=== PATIENT | female | born 1970 | race African-American/Black ===

== ENCOUNTER → 2016-04-30 | Outpatient (CLI) | payer OTHER ==
[~2016-04-30] MED LIST: ACEROLA C500 M2 PER TUBE; ACETAMINOP160 MG/5 M PER TUBE; BISACODYL SUPP10 MG RECTAL; CEFTIN 250 MG250 MG PO; CERTA VITE9 MG/15 ML PER TUBE; CERTAVITE WITH1 EAC1 PER TUBE; CLARITIN10 MG PER TUBE; DEBROX OTIC; DEPAKENE250 MG/5 M PER TUBE; DIASTAT2.5 MG RECTAL; ERYPED 200200 MG/51 PER TUBE; ERYTHROMYCIN PER TUBE; FLEET ENEMA118 ML RECTAL; KEPPRA 100100 MG/M1 PER TUBE; LOPERAMIDE1 MG/5 M1 PER TUBE; LOPRESSOR50 PER TUBE; MIRALAX255 GM PER TUBE; NEXIUM 40 MG CA40 M1 PER TUBE; NORVASC 2.5 MG2.5 M1 PER TUBE; OCEAN NASAL SPRAY; ONFI2.5 MG/1 M PER TUBE; OXCARBAZEP300 MG/5 M PER TUBE; OYSTERCAL-D 501 EACH PER TUBE; ROBITUSSIN DM118 ML PO; ROBITUSSIN100 MG/53 PER TUBE; SILVADENE20 GM; SULFATRIM PEDI480 ML PER TUBE; VALIUM5 MG RECTAL; VALPROIC A250 MG/53 PER TUBE; VITAMIN C125 MG PER TUBE; VITAMIN D-32000 UNIT PER TUBE; ZOFRAN ODT4 MG PO
== END ==
LOC: NUC 04-25 06:44 → ULTRA 09:00
DX: N95.9 Unspecified menopausal and perimenopausal disorder (principal); M81.0 Age-related osteoporosis without current pathological fracture; N64.4 Mastodynia; M85.80 Other specified disorders of bone density and structure, unspecified site

== ENCOUNTER → 2017-05-02 | Outpatient (CLI) | payer OTHER ==
[~2017-05-02] MED LIST changes: +AMOX TR-K CLV1 EAC4 PO; +AUGMENTIN 875-1 EACH PER TUBE; +AUGMENTIN 875-1 EACH PO; +BISCOLAX10 MG RECTAL; +CEFDINIR300 MG PO; +CLARITIN10 MG PO; +DUONEB 2.5-0.5 M3 ML INH; +FLAGYL500 MG PO; +FLEET ENEMA133 ML RECTAL; +JEVITY 1.5 CAL237 ML PO; +LOPERAMIDE 2 MG2 M1 PER TUBE; +LOPRESSOR50 PO; +MINERIN CREME454 GM TOP; +MIRALAX17 GM PO; +MURINE EAR DROP15 ML OTIC; +ONFI; +ONFI10 MG PO; +ONFI2.5 MG/1 M PO; +TUMS PO; +VITAMIN D2000 UNIT PER TUBE; +ZOFRAN ODT4 MG PER TUBE; +[UNRECOGNIZED DRUG - OTHER] PER TUBE; +[UNRECOGNIZED DRUG - OTHER] PO
--- NOTE | ~2017-05-02 | 2DMMODE ---
[facility] [address] [place] [address] 2 D/M-MODE ECHOCARDIOGRAM Name: MK REESE Room #: REG [facility]#: [id number] Admission: 05/02/17 Attend Phys: Faiza Hays Discharge: Date of : 70 Date of Service: 05/02/17 1425 Report #: [id number] THIS REPORT FOR: //name// APPROVED REPORT Study performed: 05/02/2017 13:43:08 EXAM: Comprehensive 2D, Doppler, and color-flow Echocardiogram Patient Location: Out-Patient Status: routine BSA: 1.36 HR: 97 bpm BP: 97/66 mmHg Rhythm: NSR Other Information Study Quality: Fair/patient is wheelchair bound. Technically limited study due to no patient cooperation. Exam done in wheelchair. Indications Chest Pain HTN. Hx: Cerebral palsy, mental retardation, PEG tub. 2D Dimensions RVDd: 22.10 mm LVEF(%): 68.11 (>50%) IVSd: 10.00 (7-11mm) LVOT Diam: 18.86 (18-24mm) LVDd: 32.32 mm PWd: 9.31 (7-11mm) LVDs: 20.40 (25-40mm) Aortic Root: 25.77 mm Siegel's LVEF: 68.11 % Volumes Left Atrial Volume (Systole) Single Plane 4CH: 20.02 mL Single Plane 2CH: 23.63 mL Aortic Valve AoV Peak Joaquín.: 1.30 m/s AO Peak Gr.: 6.94 mmHg LVOT Max P.27 mmHg LVOT Max V: 1.15 m/s USMAN Vmax: 2.47 cm2 Mitral Valve [facility] [address] [place] [address] 2 D/M-MODE ECHOCARDIOGRAM Name: MK REESE Room #: REG [facility]#: [id number] Admission: 05/02/17 Attend Phys: Faiza Hays Discharge: Date of : 70 Date of Service: 05/02/17 1425 Report #: [id number] E/A Ratio: 0.8 MV Decel. Time: 193.26 ms MV E Max Joaquín.: 0.58 m/s MV A Joaquín.: 0.73 m/s MV PHT: 56.04 ms IVRT: 89.97 ms Tricuspid Valve RAP Estimate: 5.00 mmHg Left Ventricle The left ventricle is normal size. There is normal LV segmental wall motion. There is normal left ventricular wall thickness. Left ventricular systolic function is normal. LVEF is 65%. Mild diastolic dysfunction is present (impaired relaxation pattern). Right Ventricle The right ventricle is normal size. The right ventricular systolic function is normal. Atria The left atrium size is normal. The right atrium size is normal. Aortic Valve The aortic valve is not well visualized. No aortic regurgitation is present. There is no aortic valvular stenosis. Mitral Valve The mitral valve is normal in structure. There is no mitral valve regurgitation noted. No evidence of mitral valve stenosis. Tricuspid Valve The tricuspid valve is normal in structure. There is no tricuspid valve regurgitation noted. Unable to assess PA pressure. Pulmonic Valve Pulmonic valve is not well visualized. Great Vessels The aortic root is normal in size. Ascending aorta is not well visualized. IVC is normal in size and collapses >50% with inspiration. Pericardium There is no pericardial effusion. [facility] [address] [place] [address] 2 D/M-MODE ECHOCARDIOGRAM Name: MK REESE [facility]: REG [facility] [id number] Admission: 05/02/17 Attend Phys: Faiza Hays Discharge: Date of : 70 Date of Service: 05/02/17 1425 Report #: [id number] <Conclusion> The left ventricle is normal size. LVEF is 65%. The aortic valve is not well visualized. There is no aortic valvular stenosis. No aortic regurgitation is present. The mitral valve is normal in structure. There is no mitral valve regurgitation noted. The tricuspid valve is normal in structure. There is no tricuspid valve regurgitation noted. Unable to assess PA pressure. Pulmonic valve is not well visualized. There is no pericardial effusion. <ELECTRONICALLY SIGNED> By: Sushil Lopez MD 05/02/17 1425 1425 1425 Sushil Lopez MD /INF
== END ==
LOC: ULTRA 06:51
DX: I10 Essential (primary) hypertension (principal); G80.9 Cerebral palsy, unspecified; R92.8 Other abnormal and inconclusive findings on diagnostic imaging of breast; N39.0 Urinary tract infection, site not specified; E87.2 Acidosis; Z93.1 Gastrostomy status

== ENCOUNTER 2017-05-26 08:46 | Inpatient (IN) | payer OTHER ==
[~2017-05-26] VITALS: Ht 167.6 cm; Wt 49.0 kg
--- NOTE | ~2017-05-26 | EKG ---
[address] [place] [address] ELECTROCARDIOGRAM REPORT Name: MK REESE Room #: 437-P ADM IN M.R.#: [id number] Admission: 05/26/17 Attend Phys: Julian Walter MD Discharge: Date of : 70 Report #: [id number] THIS REPORT FOR: //name// [facility] ED Test Date: 2017-05-26 Test Time: 10:08:38 Pat Name: MK REESE Department: Room: [facility] Gender: F Clerk Television Production: Edson MELVIN : 1970 Requested By: Sheri Vergara Order Number: [id number] MD: Abdoulaye Araujo Measurements Intervals [place] Rate: 100 P: 47 VA: 139 QRS: 48 QRSD: 79 T: 52 QT: 349 QTc: 451 Interpretive Statements Sinus tachycardia Borderline T wave abnormalities Compared to ECG 02/09/2016 06:20:30 T-wave abnormality now present Electronically Signed On 05-26-2017 17:16:41 PROFESSOR OF ASTRONOMY by Abdoulaye Araujo [email or web address] <ELECTRONICALLY SIGNED> By: Abdoulaye Araujo MD, [facility] 05/26/17 1716 07 Abdoulaye Araujo MD, [facility] /EPI
[~2017-05-26 08:46] MED LIST changes: -AMOX TR-K CLV1 EAC4 PO; -AUGMENTIN 875-1 EACH PER TUBE; -AUGMENTIN 875-1 EACH PO; -BISCOLAX10 MG RECTAL; -CEFDINIR300 MG PO; -CLARITIN10 MG PO; -DUONEB 2.5-0.5 M3 ML INH; -FLAGYL500 MG PO; -FLEET ENEMA133 ML RECTAL; -JEVITY 1.5 CAL237 ML PO; -LOPERAMIDE 2 MG2 M1 PER TUBE; -LOPRESSOR50 PO; -MINERIN CREME454 GM TOP; -MIRALAX17 GM PO; -MURINE EAR DROP15 ML OTIC; -ONFI; -ONFI2.5 MG/1 M PO; -TUMS PO; -VITAMIN D2000 UNIT PER TUBE; -ZOFRAN ODT4 MG PER TUBE; -[UNRECOGNIZED DRUG - OTHER] PER TUBE; -[UNRECOGNIZED DRUG - OTHER] PO
[2017-05-26 09:02] VITALS: BP 82/41
[2017-05-26 09:59] LABS: HEMATOCRIT 34.9 % (37.0-47.0); HEMOGLOBIN 11.8 gm/dL (12.0-15.0); MCHC 33.8 g/dL (28.0-37.0); MCV 97.4 fL (80.0-100.0); PLATELET COUNT 204 thou/uL (150-400); RBC 3.58 mil/uL (4.20-5.00); WBC 9.6 thou/uL (4.0-11.0)
[2017-05-26 10:13] LABS: CALCIUM 8.4 mg/dL (8.5-10.1); CREATININE 0.5 mg/dL (0.6-1.0); POTASSIUM 3.3 mmol/L (3.5-5.1)
[2017-05-26 10:19] LABS: ALBUMIN 2.6 g/dL (3.4-5.0); TOTAL BILIRUBIN 0.2 mg/dL (<0.1-1.0); TOTAL PROTEIN 6.5 g/dL (6.4-8.2)
[2017-05-26 10:21] LABS: TROPONIN-I < 0.04 ng/mL (<0.06)
[2017-05-26 10:22] LABS: METAMYELOCYTES 1 %; PLATELET ESTIMATE NORMAL
[2017-05-26 10:44] LABS: URINE BILIRUBIN NEGATIVE (Negative); URINE BLOOD NEGATIVE (Negative); URINE CLARITY CLEAR; URINE COLOR YELLOW; URINE GLUCOSE-RANDOM* NEGATIVE (Negative); URINE KETONES NEGATIVE (Negative); URINE LEUKOCYTES NEGATIVE (Negative); URINE NITRITE NEGATIVE (Negative); URINE PROTEIN (DIPSTICK) NEGATIVE (Negative); URINE UROBILINOGEN 0.2 E.U./dl (0.2-1.0)
[2017-05-26] MEDS ORDERED: CLARITIN10 MG PO (15:52)
[2017-05-26] MEDS ORDERED: JEVITY 1.5 CAL237 ML PO (15:53)
[2017-05-26 16:03] LABS: MAGNESIUM 1.9 mg/dL (1.8-2.4)
[2017-05-26 16:30] VITALS: BP 122/85
[2017-05-26 19:31] VITALS: BP 128/90
[2017-05-27 03:45] VITALS: BP 126/75
[2017-05-27 06:30] LABS: HEMATOCRIT 36.7 % (37.0-47.0); HEMOGLOBIN 12.3 gm/dL (12.0-15.0); MCH 32.8 pg (26.0-34.0); MCHC 33.7 g/dL (28.0-37.0); MCV 97.4 fL (80.0-100.0); PLATELET COUNT 178 thou/uL (150-400); RBC 3.77 mil/uL (4.20-5.00); RDW 14.1 % (10.5-14.5); WBC 8.1 thou/uL (4.0-11.0)
[2017-05-27 06:59] LABS: CALCIUM 7.8 mg/dL (8.5-10.1); CREATININE 0.5 mg/dL (0.6-1.0); MAGNESIUM 1.8 mg/dL (1.8-2.4); POTASSIUM 3.6 mmol/L (3.5-5.1)
[2017-05-27 08:42] VITALS: BP 146/83
[2017-05-27 09:09] LABS: ABSOLUTE NEUTROPHILS 4.5 thou/uL (1.4-8.2); PLATELET ESTIMATE NORMAL
[2017-05-27 16:08] VITALS: BP 132/65
[2017-05-27 20:18] VITALS: BP 118/68
[2017-05-28 01:56] LABS: HEMATOCRIT 35.4 % (37.0-47.0); MCH 33.1 pg (26.0-34.0); MCV 97.6 fL (80.0-100.0); RBC 3.62 mil/uL (4.20-5.00); RDW 14.2 % (10.5-14.5)
[2017-05-28 02:04] LABS: CALCIUM 8.2 mg/dL (8.5-10.1); CREATININE 0.5 mg/dL (0.6-1.0); POTASSIUM 4.1 mmol/L (3.5-5.1)
[2017-05-28 04:59] VITALS: BP 140/86
[2017-05-28 08:15] VITALS: BP 147/101
[2017-05-28 12:41] VITALS: BP 124/77
[2017-05-28 15:25] VITALS: BP 129/67
[2017-05-28 21:27] VITALS: BP 115/67
[2017-05-29 04:00] VITALS: BP 134/90
[2017-05-29 08:22] VITALS: BP 131/83
[2017-05-29] MEDS ORDERED: DUONEB 2.5-0.5 M3 ML INH (13:47)
[2017-05-29] MEDS ORDERED: AUGMENTIN 875-1 EACH PO (13:50)
== END 2017-05-29 17:27 | disposition home or self-care (01) | DRG 177 ==
LOC: ER 08:46 → 4S 10:51 → EROBS 10:51 → 4S 16:09
PROVIDERS: Hospitalist; Nurse Practitioner; Physician Assistant
DX: J15.6 Pneumonia due to other Gram-negative bacteria (principal); J96.00 Acute respiratory failure, unspecified whether with hypoxia or hypercapnia; E43 Unspecified severe protein-calorie malnutrition; Z68.1 Body mass index [BMI] 19.9 or less, adult; G40.909 Epilepsy, unspecified, not intractable, without status epilepticus; I10 Essential (primary) hypertension; K21.9 Gastro-esophageal reflux disease without esophagitis; E87.6 Hypokalemia; H91.90 Unspecified hearing loss, unspecified ear; I95.9 Hypotension, unspecified; M85.80 Other specified disorders of bone density and structure, unspecified site; R13.10 Dysphagia, unspecified; K59.09 Other constipation; Z79.899 Other long term (current) drug therapy; Z93.1 Gastrostomy status
CPT/HCPCS: 10100

== ENCOUNTER 2017-06-04 19:52 | Emergency (ER) | payer OTHER ==
[~2017-06-04] VITALS: Ht 167.6 cm; Wt 47.2 kg
[~2017-06-04 19:52] MED LIST changes: +AUGMENTIN 875-1 EACH PO; +CLARITIN10 MG PO; +DUONEB 2.5-0.5 M3 ML INH; +JEVITY 1.5 CAL237 ML PO
[2017-06-04 21:38] LABS: HEMATOCRIT 38.9 % (37.0-47.0); HEMOGLOBIN 13.1 gm/dL (12.0-15.0); MCH 32.8 pg (26.0-34.0); MCHC 33.7 g/dL (28.0-37.0); MCV 97.2 fL (80.0-100.0); PLATELET COUNT 219 thou/uL (150-400); RDW 13.7 % (10.5-14.5); WBC 7.4 thou/uL (4.0-11.0)
[2017-06-04 21:47] LABS: CREATININE 0.5 mg/dL (0.6-1.0); POTASSIUM 4.1 mmol/L (3.5-5.1)
[2017-06-04 21:58] LABS: URINE BILIRUBIN NEGATIVE (Negative); URINE BLOOD NEGATIVE (Negative); URINE CLARITY CLEAR; URINE COLOR YELLOW; URINE GLUCOSE-RANDOM* NEGATIVE (Negative); URINE KETONES NEGATIVE (Negative); URINE LEUKOCYTES NEGATIVE (Negative); URINE NITRITE NEGATIVE (Negative); URINE PROTEIN (DIPSTICK) NEGATIVE (Negative); URINE SPECIFIC GRAVITY 1.015 (1.005-1.035); URINE UROBILINOGEN 0.2 E.U./dl (0.2-1.0)
[2017-06-04 22:04] LABS: DIRECT BILIRUBIN 0.1 mg/dL (<0.1-0.3); TOTAL BILIRUBIN 0.1 mg/dL (<0.1-1.0); TOTAL PROTEIN 7.1 g/dL (6.4-8.2)
[2017-06-04 22:12] LABS: ABSOLUTE NEUTROPHILS 4.1 thou/uL (1.4-8.2)
[2017-06-04 22:24] VITALS: BP 118/81
== END 2017-06-04 23:51 | disposition home or self-care (01) ==
LOC: ER 19:52
PROVIDERS: Emergency Medicine
DX: G40.909 Epilepsy, unspecified, not intractable, without status epilepticus (principal); I10 Essential (primary) hypertension; K21.9 Gastro-esophageal reflux disease without esophagitis

== ENCOUNTER 2017-06-15 17:42 | Emergency (ER) | payer OTHER ==
[~2017-06-15] VITALS: Ht 165.1 cm; Wt 52.2 kg
--- NOTE | ~2017-06-15 | EKG ---
[address] [place] [address] ELECTROCARDIOGRAM REPORT Name: MK REESE [id number] Admission: 06/15/17 Attend Phys: Discharge: 06/15/17 Date of : 70 Report #: [id number] THIS REPORT FOR: //name// [facility] ED Test Date: 2017-06-15 Test Time: 17:55:27 Pat Name: MK REESE Department: Room: Gender: F Supervisor [employer]aming [employer]: DILIPCOREY : 1970 Requested By: Quintin Starr Order Number: [id number] MD: Abdoulaye Araujo Measurements Intervals [place] Rate: 87 P: 55 CT: 133 QRS: 47 QRSD: 92 T: 48 QT: 368 QTc: 443 Interpretive Statements Sinus rhythm Abnormal R-wave progression, early transition Compared to ECG 05/26/2017 10:08:38 Early R-wave progression is now present Electronically Signed On 06-16-2017 8:02:12 FLY FISHING GUIDE by Abdoulaye Araujo [email or web address] <ELECTRONICALLY SIGNED> By: Abdoulaye Araujo MD, [facility] 06/16/17 08 1755 175 Abdoulaye Araujo MD, FACC /EPI
[2017-06-15 18:59] LABS: HEMATOCRIT 40.3 % (37.0-47.0); HEMOGLOBIN 13.7 gm/dL (12.0-15.0); MCH 32.9 pg (26.0-34.0); MCV 96.8 fL (80.0-100.0); PLATELET COUNT 220 thou/uL (150-400); RBC 4.17 mil/uL (4.20-5.00); RDW 13.6 % (10.5-14.5); WBC 5.3 thou/uL (4.0-11.0)
[2017-06-15 19:00] LABS: BE(vivo) 2.3 mmol/L (-2 to +3); HCO3 28.1 mmol/L (22.0-26.0); PO2 VENOUS 72.2 mmHg (35.0-45.0)
[2017-06-15 19:09] LABS: ANION GAP 5 mmol/L (7-16); BUN 12 mg/dL (7-18); CALCIUM 9.1 mg/dL (8.5-10.1); CHLORIDE 103 mmol/L (98-107); CO2 29 mmol/L (21-32); CREATININE 0.5 mg/dL (0.6-1.0); GLUCOSE 105 mg/dL (74-106); POTASSIUM 3.9 mmol/L (3.5-5.1); SODIUM 137 mmol/L (136-145)
[2017-06-15 19:16] LABS: SGOT 23 U/L (15-37); SGPT 23 U/L (30-65); TOTAL BILIRUBIN 0.2 mg/dL (<0.1-1.0); TOTAL PROTEIN 7.6 g/dL (6.4-8.2); TROPONIN-I < 0.04 ng/mL (<0.06)
[2017-06-15 19:32] LABS: ABSOLUTE NEUTROPHILS 1.8 thou/uL (1.4-8.2); ATYPICAL LYMPHS 1 %
[2017-06-15 19:33] VITALS: BP 115/75
== END 2017-06-15 20:44 ==
LOC: ER 17:42
PROVIDERS: Emergency Medicine
DX: G80.9 Cerebral palsy, unspecified (principal); R06.03 Acute respiratory distress; R06.00 Dyspnea, unspecified; I10 Essential (primary) hypertension; K21.9 Gastro-esophageal reflux disease without esophagitis

== ENCOUNTER 2017-06-19 07:40 | Inpatient (IN) | payer OTHER ==
[~2017-06-19] VITALS: Ht 167.6 cm; Wt 56.5 kg
--- NOTE | ~2017-06-19 | EKG ---
[address] [place] [address] ELECTROCARDIOGRAM REPORT Name: MK REESE Room #: REG [facility] [id number] Admission: 06/19/17 Attend Phys: Discharge: Date of : 70 Report #: [id number] THIS REPORT FOR: //name// [facility] ED Test Date: 2017-06-19 Test Time: 08:14:38 Pat Name: MK REESE Department: Room: Gender: F Route Delivery Manager: rai : 1970 Requested By: Manjit Lee Order Number: [id number] MD: Abdoulaye Araujo Measurements Intervals [place] Rate: 122 P: 53 SD: 127 QRS: 57 QRSD: 77 T: 42 QT: 300 QTc: 428 Interpretive Statements Sinus tachycardia Abnormal R-wave progression, early transition Borderline repolarization abnormality Compared to ECG 06/15/2017 17:55:27 Heart rate has increased Electronically Signed On 06-19-2017 8:47:20 MACHINE OPERATOR CANE CUTTER by Abdoulaye Araujo [email or web address] <ELECTRONICALLY SIGNED> By: Abdoulaye Araujo MD, [facility] 06/19/17 0847 0814 3 Abdoulaye Araujo MD, FACC /EPI
--- NOTE | ~2017-06-19 | EEG ---
[facility] [place] [address] ELECTROENCEPHALOGRAM Name: MK REESE Room #: 217-P ADM IN M.R.#: [id number] Admission: 06/19/17 Attend Phys: Julian Walter MD Discharge: Date of : 70 Report #: [id number] THIS REPORT FOR: //name// CC: Julian Hays DATE OF SERVICE: 06/22/2017 This patient is being evaluated for the possibility of seizure. EEG was done by placing the electrode by standard 10/20 system of electrode placement. Both the referential and sequential montages were used for recording. Lot of eye movements are present. Background activity does appear to be about 6 Hz and 20 microvolt. It is a symmetrical activity. No active epileptiform activity was noticed during this record. The patient was not able to cooperate with photic stimulations. IMPRESSION: This patient's EEG demonstrates poorly formed background activity that will be consistent with a history of prior brain damage. No active epileptiform activity was noticed during this record. Thank you very much for this referral. <ELECTRONICALLY SIGNED> By: Umberto Frost MD 06/24/17 0719 00 Umberto Frost MD /nt
--- NOTE | ~2017-06-19 | HC ---
[facility] [place] [address] CONSULTATION Name: MK REESE Room #: 217-P ADM IN M.R.#: [id number] Admission: 06/19/17 Attend Phys: Julian Walter MD Discharge: Date of : 70 Report #: [id number] THIS REPORT FOR: //name// CC: Julian Hays DATE OF SERVICE: 06/22/2017 HISTORY OF PRESENT ILLNESS: A 47-year-old female patient who is unable to provide any history. There is no caregiver here at the moment. I talked to the nurses and they indicated that the patient lives in a correction, but is a total care. They have not noticed any active seizure, but her heart rate goes up sometime. She was admitted actually with fever and vomiting. No active seizure has been noted. She had severe and intractable seizures in the past. It does not look like it is responsive to the medication. It is a longstanding seizure disorder. REVIEW OF SYSTEMS: I reviewed my prior records and other records in the computer. She was seen by me a few years ago and she was also seen by Dr. Thayer, another neurologist, a few years ago. She has been admitted with intractable seizure. It is not clear what medication she takes. Looks like presently she is on Keppra as well as Depakote. She is on a maximum dose of Keppra at 1000 mg 3 times a day. She is on Depakote 500 mg t.i.d., which is higher than she has been in the past. At one time, she was on Trileptal and I do not know when that was discontinued or whether that was discontinued. She was on also other nearer medications, but I think some time along the line that got discontinued. She has severe, what looks like, cerebral palsy. She had very limited mobility. She lay in a position and looks like she has pneumonia now. I carried out the 14-point review of systems mainly from reviewing the prior records and it looks like this is what she has. 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 PAST MEDICAL HISTORY: Positive for intractable seizure, but it is not certain whether she is having seizure at the moment or not. FAMILY HISTORY: Unavailable. SOCIAL HISTORY: She lives in a correction, but she is a total care. PHYSICAL EXAMINATION: Very limited. She is deaf and blind according to the nurses. She does not follow any commands and she does not say any word. I tried to do the cranial nerve examination, she did not cooperate. She lays in the position with increased tone, but that appeared to be the baseline and has been present in my records. She does not understand instruction for cerebellar sign and cannot do the fundus examination. [place] [address] CONSULTATION Name: MK REESE Room #: 217-P ADM IN M.R.#: [id number] Admission: 06/19/17 Attend Phys: Julian Walter MD Discharge: Date of : 70 Report #: [id number] individual. Nurses tell me she cannot hear or see. Her blood pressure is 101/60, respirations 18, pulse is 111, temperature is 99.6. Sodium is normal. IMPRESSION: It is not certain that this patient is having any seizure. She has intractable seizures, but she is on medication. It is not clear what medication it is. We will try to get some records if we can to confirm what medication she is on. RECOMMENDATIONS: 1. Presently, leave her on same anticonvulsant of Depakote and Keppra. 2. Get an EEG done. 3. If EEG is okay, I will just leave her on same medication, but watch for seizure because the patient can have a seizure when they are having fever. If not, then I will ask her to follow up with her own neurologist, which I believe is Dr. Samuel. Thank you very much for this referral. <ELECTRONICALLY SIGNED> By: Umberto Frost MD 06/24/17 0721 1019 1054 Umberto Frost MD /nt
[2017-06-19 07:41] VITALS: BP 104/53
[2017-06-19 08:05] LABS: HEMATOCRIT 38.5 % (37.0-47.0); MCH 32.8 pg (26.0-34.0); MCHC 33.9 g/dL (28.0-37.0); MCV 96.7 fL (80.0-100.0); PLATELET COUNT 211 thou/uL (150-400); RBC 3.98 mil/uL (4.20-5.00); RDW 13.7 % (10.5-14.5); WBC 8.9 thou/uL (4.0-11.0)
[2017-06-19 08:19] LABS: CALCIUM 9.1 mg/dL (8.5-10.1); CREATININE 0.9 mg/dL (0.6-1.0); POTASSIUM 3.8 mmol/L (3.5-5.1)
[2017-06-19 08:20] LABS: URINE BILIRUBIN NEGATIVE (Negative); URINE BLOOD TRACE (Negative); URINE CLARITY CLEAR; URINE COLOR YELLOW; URINE GLUCOSE-RANDOM* NEGATIVE (Negative); URINE KETONES TRACE (Negative); URINE LEUKOCYTES-REFLEX NEGATIVE (Negative); URINE NITRITE-REFLEX NEGATIVE (Negative); URINE PROTEIN (DIPSTICK) NEGATIVE (Negative); URINE SPECIFIC GRAVITY 1.015 (1.005-1.035)
[2017-06-19 08:28] LABS: SSA (PROTEIN CONFIRMATORY) NEGATIVE (Negative)
[2017-06-19 08:41] LABS: ABSOLUTE NEUTROPHILS 5.7 thou/uL (1.4-8.2); METAMYELOCYTES 2 %
[2017-06-19] MEDS ORDERED: [UNRECOGNIZED DRUG - OTHER] PER TUBE ×2 (09:29→09:30)
[2017-06-19] MEDS ORDERED: ONFI2.5 MG/1 M PER TUBE (09:34)
[2017-06-19] MEDS ORDERED: VITAMIN D2000 UNIT PER TUBE (09:43)
[2017-06-19 11:20] VITALS: BP 125/77
[2017-06-19 12:36] VITALS: BP 108/66
[2017-06-19 13:04] VITALS: BP 85/53
[2017-06-19 15:44] VITALS: BP 87/58
[2017-06-19] MEDS ORDERED: AMOX TR-K CLV1 EAC4 PO (16:14)
[2017-06-19] MEDS ORDERED: ONFI (16:17)
[2017-06-19] MEDS ORDERED: TUMS PO (16:19)
[2017-06-19] MEDS ORDERED: [UNRECOGNIZED DRUG - OTHER] PO (16:20)
[2017-06-19] MEDS ORDERED: LOPRESSOR50 PO (16:24)
[2017-06-19] MEDS ORDERED: MINERIN CREME454 GM TOP (16:26)
[2017-06-19] MEDS ORDERED: MIRALAX17 GM PO (16:33)
[2017-06-19] MEDS ORDERED: BISCOLAX10 MG RECTAL (16:34)
[2017-06-19] MEDS ORDERED: FLEET ENEMA133 ML RECTAL (16:35)
[2017-06-19] MEDS ORDERED: ROBITUSSIN100 MG/53 PER TUBE (16:41)
[2017-06-19] MEDS ORDERED: LOPERAMIDE 2 MG2 M1 PER TUBE (16:42)
[2017-06-19] MEDS ORDERED: CLARITIN10 MG PO (16:42)
[2017-06-19] MEDS ORDERED: MURINE EAR DROP15 ML OTIC (16:44)
[2017-06-19] MEDS ORDERED: ZOFRAN ODT4 MG PER TUBE (16:45)
[2017-06-19 20:30] VITALS: BP 103/58
[2017-06-20 04:30] VITALS: BP 116/68
[2017-06-20 05:13] LABS: CALCIUM 8.1 mg/dL (8.5-10.1); CREATININE 0.5 mg/dL (0.6-1.0); MAGNESIUM 1.9 mg/dL (1.8-2.4); POTASSIUM 4.1 mmol/L (3.5-5.1)
[2017-06-20 06:26] VITALS: BP 116/68
[2017-06-20 08:22] VITALS: BP 135/97
[2017-06-20 09:44] LABS: APTT 27.1 Seconds (24.5-32.8); PROTIME 10.1 Seconds (9.3-11.4)
[2017-06-20 11:19] VITALS: BP 146/88
[2017-06-20 19:59] VITALS: BP 131/85
[2017-06-21 00:30] VITALS: BP 141/73
[2017-06-21 04:09] VITALS: BP 119/90
[2017-06-21 10:16] LABS: HEMOGLOBIN 11.8 gm/dL (12.0-15.0); MCH 32.6 pg (26.0-34.0); MCHC 33.8 g/dL (28.0-37.0); MCV 96.5 fL (80.0-100.0); RBC 3.63 mil/uL (4.20-5.00); RDW 13.8 % (10.5-14.5); WBC 8.5 thou/uL (4.0-11.0)
[2017-06-21 10:25] LABS: CALCIUM 7.5 mg/dL (8.5-10.1); CREATININE 0.5 mg/dL (0.6-1.0); MAGNESIUM 1.7 mg/dL (1.8-2.4); POTASSIUM 3.2 mmol/L (3.5-5.1)
[2017-06-21 16:06] VITALS: BP 147/93
[2017-06-21 19:19] VITALS: BP 146/98
[2017-06-22 04:16] LABS: HEMATOCRIT 33.7 % (37.0-47.0); HEMOGLOBIN 11.4 gm/dL (12.0-15.0); MCH 32.8 pg (26.0-34.0); MCHC 33.8 g/dL (28.0-37.0); RBC 3.48 mil/uL (4.20-5.00); RDW 13.8 % (10.5-14.5); WBC 6.9 thou/uL (4.0-11.0)
[2017-06-22 04:19] VITALS: BP 101/60
[2017-06-22 04:31] LABS: CALCIUM 8.3 mg/dL (8.5-10.1); CREATININE 0.5 mg/dL (0.6-1.0); MAGNESIUM 2.2 mg/dL (1.8-2.4); POTASSIUM 4.1 mmol/L (3.5-5.1)
[2017-06-22 15:32] VITALS: BP 171/99
[2017-06-22 19:25] VITALS: BP 155/99
[2017-06-23 04:23] VITALS: BP 142/96
[2017-06-23 05:57] LABS: HEMATOCRIT 34.9 % (37.0-47.0); HEMOGLOBIN 11.8 gm/dL (12.0-15.0); MCH 32.6 pg (26.0-34.0); MCHC 33.8 g/dL (28.0-37.0); MCV 96.5 fL (80.0-100.0); RBC 3.61 mil/uL (4.20-5.00); RDW 13.7 % (10.5-14.5); WBC 6.3 thou/uL (4.0-11.0)
[2017-06-23 06:06] LABS: CALCIUM 8.6 mg/dL (8.5-10.1); CREATININE 0.4 mg/dL (0.6-1.0); POTASSIUM 4.2 mmol/L (3.5-5.1)
[2017-06-23 08:00] VITALS: BP 147/98
[2017-06-23 19:46] VITALS: BP 139/92
[2017-06-24 03:56] VITALS: BP 148/88
[2017-06-24 04:52] LABS: CALCIUM 8.6 mg/dL (8.5-10.1); CREATININE 0.5 mg/dL (0.6-1.0); MAGNESIUM 1.8 mg/dL (1.8-2.4); POTASSIUM 4.1 mmol/L (3.5-5.1)
[2017-06-24 04:53] LABS: HEMATOCRIT 36.7 % (37.0-47.0); HEMOGLOBIN 12.3 gm/dL (12.0-15.0); MCH 32.5 pg (26.0-34.0); MCHC 33.6 g/dL (28.0-37.0); MCV 96.7 fL (80.0-100.0); RBC 3.79 mil/uL (4.20-5.00); RDW 13.7 % (10.5-14.5); WBC 7.1 thou/uL (4.0-11.0)
[2017-06-24 07:20] VITALS: BP 163/106
[2017-06-24] MEDS ORDERED: AUGMENTIN 875-1 EACH PER TUBE (09:20)
[2017-06-26 00:06] LABS: ADENOVIRUS Negative (Negative); INFLUENZA A Negative (Negative); INFLUENZA B Negative (Negative); METAPNEUMOVIRUS Negative (Negative); PARAINFLUENZA 1 Negative (Negative); PARAINFLUENZA 2 Negative (Negative); PARAINFLUENZA 3 Negative (Negative); RHINOVIRUS Negative (Negative); RSV A Negative (Negative); RSV B Negative (Negative)
== END 2017-06-24 13:55 | DRG 853 ==
LOC: ER 07:40 → EROBS 11:04 → 2N 11:04
PROVIDERS: Emergency Medicine; Internal Medicine; Nurse Practitioner; Radiology Vascular & Interventional Radiology
PROC: 0D164ZA Bypass Stomach to Jejunum, Percutaneous Endoscopic Approach (ICD-10-PCS; principal; 2017-06-20)
PROC: B548ZZA Ultrasonography of Superior Vena Cava, Guidance (ICD-10-PCS; 2017-06-23)
PROC: 02HV33Z Insertion of Infusion Device into Superior Vena Cava, Percutaneous Approach (ICD-10-PCS; 2017-06-23)
DX: A41.9 Sepsis, unspecified organism (principal); J69.0 Pneumonitis due to inhalation of food and vomit; N17.0 Acute kidney failure with tubular necrosis; K59.09 Other constipation; I10 Essential (primary) hypertension; K21.9 Gastro-esophageal reflux disease without esophagitis; M85.80 Other specified disorders of bone density and structure, unspecified site; G40.909 Epilepsy, unspecified, not intractable, without status epilepticus; H54.7 Unspecified visual loss; Z79.899 Other long term (current) drug therapy; Z99.3 Dependence on wheelchair
CPT/HCPCS: 10081; 27000

== ENCOUNTER 2017-08-21 08:22 | Emergency (ER) | payer OTHER ==
[~2017-08-21] VITALS: Ht 160 cm; Wt 54.4 kg
[~2017-08-21 08:22] MED LIST changes: +AMOX TR-K CLV1 EAC4 PO; +AUGMENTIN 875-1 EACH PER TUBE; +BISCOLAX10 MG RECTAL; +FLEET ENEMA133 ML RECTAL; +LOPERAMIDE 2 MG2 M1 PER TUBE; +LOPRESSOR50 PO; +MINERIN CREME454 GM TOP; +MIRALAX17 GM PO; +MURINE EAR DROP15 ML OTIC; +ONFI; +TUMS PO; +VITAMIN D2000 UNIT PER TUBE; +ZOFRAN ODT4 MG PER TUBE; +[UNRECOGNIZED DRUG - OTHER] PER TUBE; +[UNRECOGNIZED DRUG - OTHER] PO
== END 2017-08-21 12:29 ==
LOC: ER 08:22
DX: Z43.1 Encounter for attention to gastrostomy (principal)

== ENCOUNTER 2017-08-23 18:59 | Inpatient (IN) | payer OTHER ==
[~2017-08-23] VITALS: Ht 167.6 cm; Wt 36.3 kg
--- NOTE | ~2017-08-23 | EEG ---
[facility] [place] [address] ELECTROENCEPHALOGRAM Name: MK REESE Room #: 213-P ADM IN M.R.#: [id number] Admission: 08/23/17 Attend Phys: Gordon Parikh DO Discharge: Date of : 70 Report #: [id number] THIS REPORT FOR: //name// CC: Gordon Hays DATE OF SERVICE: 08/24/2017 This patient is being evaluated for altered mental status and seizures. EEG is masked by a lot of artifact because the patient could not cooperate. Background activity appeared to be about 6 Hz and 30 microvolt. The patient appeared to be drowsy during part of the EEG. Photic stimulation is unremarkable. IMPRESSION: This is a severely abnormal EEG because it is slow and poorly formed. That is a nonspecific abnormality, which can occur with dementia, encephalopathy, effect of psychotropic medication. Some seizure activity may also be present, but that is difficult to distinguish from the artifact. Thank you very much for this referral. <ELECTRONICALLY SIGNED> By: Umberto Frost MD 08/26/17 2209 0808 0814 Umberto Frost MD /nt
--- NOTE | ~2017-08-23 | EEG ---
[facility] [place] [address] ELECTROENCEPHALOGRAM Name: MK REESE Room #: 213-P ADM IN M.R.#: [id number] Admission: 08/23/17 Attend Phys: Gordon Parikh DO Discharge: Date of : 70 Report #: [id number] THIS REPORT FOR: //name// CC: Gordon Hays DATE OF SERVICE: 08/25/2017 This patient is being evaluated for the possibility of seizure. EEG was done by placing the electrodes by standard 10/20 system of electrode placement. Both referential and sequential montages were used for recording. Background activity in this patient's EEG is about 4-5 Hz and 30 microvolt. The patient appeared to be sleepy during part of the EEG and that is associated with bilateral slowing. Throughout the record, no active epileptiform activity was noticed. Photic stimulation was unremarkable. IMPRESSION: This is an abnormal EEG because it is slow and poorly formed. That is a nonspecific abnormality, which can occur with encephalopathy, effect of psychotropic medication, dementia, etc. Clinical correlation is recommended. <ELECTRONICALLY SIGNED> By: Umberto Frost MD 08/26/17 2209 1107 1155 Umberto Frost MD /nt
--- NOTE | ~2017-08-23 | HC ---
[facility] [place] [address] CONSULTATION Name: MK REESE Room #: 213-P ADM IN M.R.#: [id number] Admission: 08/23/17 Attend Phys: Gordon Parikh DO Discharge: Date of : 70 Report #: [id number] THIS REPORT FOR: //name// CC: Angie Hays DATE OF SERVICE: 08/24/2017 HISTORY OF PRESENT ILLNESS: This is a 47-year-old female patient who is unable to provide any history at all. The patient's mother is there. She provided some history. She indicated that she was normal when she was born, but at the age of 5 months, something happened and she started having uncontrollable seizure. Since then, she has not been able to take care of herself. She is there in a position. She does not recognize her parents and she has severe mental retardation. Apparently, the seizure is going on since that time, but further history about seizures is not clear. It is not known if she has seen any neurologist recently or even in the past. At one time, she used to be with [facility], but she does not know what they did. Mother does not know if she is on any seizure medication, but reviewing the record, it looks like that this patient got 1 dose of Keppra in the Emergency Room. I do not see any imaging study in this patient of the brain. REVIEW OF SYSTEMS: Indicate that this patient is having GI problems. She has a PEG tube that is being addressed by surgeon. She has severe mental retardation. She has difficult IV stick. Record indicate that she had multiple seizures since . I do not know what seizure medication she was taking during that time. I reviewed this patient's records and I had seen this patient that time and looks like she was on Depakote at that time. She was also on Keppra. She has seen another neurologist, Dr. Thayer at one time. She had workup last time. REVIEW OF SYSTEMS: I carried out 14-point review of system with this the best I can carry it out. PAST MEDICAL HISTORY: Positive for severe mental retardation and seizures and now a GI problem. FAMILY HISTORY: Negative for congenital epilepsy. SOCIAL HISTORY: She has mother, but she lives in a chcf. PHYSICAL EXAMINATION: Limited. She does not say anything. She has no verbal output. She does not follow any command and she opened her eyes, but does not do anything. Cranial nerve examination 2-12 was attempted and it is impossible to carry out. She stays in a position with increased tone, which I assume is her baseline. She is moderately built and I cannot tell about hearing, vision, or any thyroid mass. Heart looks unremarkable. Respiration looks [facility] [address] [place] [address] CONSULTATION Name: MK REESE Room #: 213-P [facility] IN M.R.#: [id number] Admission: 08/23/17 Attend Phys: Gordon Parikh DO Discharge: Date of : 70 Report #: [id number] unremarkable. Her blood pressure is 209/198, pulse is 180, temperature is 98.2. LABORATORY DATA: White count is 21.3. IMPRESSION AND PLAN: History of seizure, which is difficult to confirm in this patient who has severe mental retardation. I discussed the situation with the family in detail. I think because of her baseline condition, we should try to be conservative, but try to control her seizures. I do not know what medicine she was put in after she left this place and whether she got anything or not. I will ask the nurses to find out. I will do an EEG to see if any active seizure activity is going on. She was on a pretty heavy dose of Keppra at one time, so I will go ahead and start this patient on Keppra. All of it was discussed with the family in detail and they understand and they want to follow this approach. Thank you very much for this referral and we will follow this patient along with you. <ELECTRONICALLY SIGNED> By: Umberto Frost MD 08/26/17 2208 1612 0342 Umberto Frost MD /nt
--- NOTE | ~2017-08-23 | EKG ---
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: EDER : 1970 Requested By: Alexis Duncan Order Number: [id number] MD: Abdoulaye Araujo Measurements Intervals [place] Rate: 126 P: 53 UT: 117 QRS: 38 QRSD: 72 T: 29 QT: 315 QTc: 457 Interpretive Statements Sinus tachycardia Atrial premature complex Abnormal R-wave progression, early transition Left ventricular hypertrophy Compared to ECG 06/19/2017 08:14:38 Atrial premature complex(es) now present Electronically Signed On 08-27-2017 8:41:26 CDT by Abdoulaye Araujo [email or web address] <ELECTRONICALLY SIGNED> By: Abdoulaye Araujo MD, [facility] 08/27/17 0841 1419 1419 Abdoulaye Araujo MD, [facility] /EPI
--- NOTE | ~2017-08-23 | EEG ---
[facility] [place] [address] ELECTROENCEPHALOGRAM Name: MK REESE Room #: 213-P ADM IN M.R.#: [id number] Admission: 08/23/17 Attend Phys: Gordon Parikh DO Discharge: Date of : 70 Report #: [id number] THIS REPORT FOR: //name// CC: Gordon Hays DATE OF SERVICE: 08/31/2017 This patient is being evaluated for the possibility of seizure. EEG was done to see if seizure activity has resolved. Background activity in this patient's EEG is about 6 Hz and 30 microvolt. Photic stimulation is unremarkable. This patient became drowsy and that is associated with bilateral slowing, which was worse than the baseline. No active epileptiform activity was noticed. IMPRESSION: This patient's electroencephalogram does not demonstrate any active epileptiform activity. However, the patient's electroencephalogram is severely abnormal because of slowing and poorly formed. That is a nonspecific abnormality, which can occur with encephalopathy, effect of psychotropic medication, dementia, etc. Clinical correlation is recommended. <ELECTRONICALLY SIGNED> By: Umberto Frost MD 09/02/172151 25 33 Umberto Frost MD /nt
--- NOTE | ~2017-08-23 | 2DMMODE ---
[facility] [address] [place] [address] 2 D/M-MODE ECHOCARDIOGRAM Name: MK REESE Room #: 213-P ADM IN M.R.#: [id number] Admission: 08/23/17 Attend Phys: Gordon Parikh, Discharge: Date of : 70 Date of Service: 08/28/17 1207 Report #: [id number] THIS REPORT FOR: //name// APPROVED REPORT Study performed: 08/28/2017 10:35:53 EXAM: Comprehensive 2D, Doppler, and color-flow Echocardiogram Patient Location: Bedside Room #: 213 Status: routine BSA: 1.56 HR: 104 bpm Other Information Study Quality: Technically DifficultTechnically Limited Technically limited study due to inability to position patient, Cerebral Palsy. Indications Tachycardia Pulmonary Valve PV Peak Joaquín.: 0.99 m/s PV Peak Gr.: 3.95 mmHg Left Ventricle The left ventricle is normal size. There is normal left ventricular wall thickness. Left ventricular systolic function is hyperdynamic. LVEF is 65-70%. This study is not technically sufficient to allow evaluation of the LV diastolic function. Right Ventricle The right ventricle is normal size. The right ventricular systolic function is normal. Atria The left atrium size is normal. The right atrium size is normal. Aortic Valve The aortic valve is not well visualized. No aortic regurgitation is present. There is no aortic valvular stenosis. Mitral Valve [facility] [address] [place] [address] 2 D/M-MODE ECHOCARDIOGRAM Name: MK REESE Room #: 213-P [facility] IN M.R.#: [id number] Admission: 08/23/17 Attend Phys: Gordon Parikh, Discharge: Date of : 70 Date of Service: 08/28/17 1207 Report #: [id number] The mitral valve is normal in structure. There is no mitral valve regurgitation noted. No evidence of mitral valve stenosis. Tricuspid Valve The tricuspid valve is normal in structure. There is no tricuspid valve regurgitation noted. Pulmonic Valve Pulmonic valve is poorly visualized. Great Vessels The aortic root is normal in size. IVC is normal in size and collapses >50% with inspiration. Pericardium There is no pericardial effusion. <Conclusion> The left ventricle is normal size. LVEF is 65-70%. This study is not technically sufficient to allow evaluation of the LV diastolic function. The right ventricle is normal size. The left atrium size is normal. The aortic valve is not well visualized. There is no aortic valvular stenosis. There is no mitral valve regurgitation noted. There is no tricuspid valve regurgitation noted. The aortic root is normal in size. There is no pericardial effusion. <ELECTRONICALLY SIGNED> By: Kevin Gant MD, FACC [id number] 06 Kevin Gant MD, FAC /INF
--- NOTE | ~2017-08-23 | HC ---
[facility] [place] [address] CONSULTATION Name: MK REESE Room #: 213-P ADM IN M.R.#: [id number] Admission: 08/23/17 Attend Phys: Gordon Parikh DO Discharge: Date of : 70 Report #: [id number] THIS REPORT FOR: //name// CC: Gordon Hays REASON FOR CONSULTATION: I was asked to evaluate concerning peritonitis, free air in the abdomen. HISTORY OF PRESENT ILLNESS: The patient is a 47-year-old with history of cerebral palsy, seizure disorder who has undergone PEG tube placement in the past. She presented on 08/23 with hematemesis. She has had a GJ tube that clogged on 08/21. This was replaced in IR. Since then, she was having several seizure episodes, then developed the hematemesis. Further evaluation has revealed gastric outlet obstruction due to the balloon of the tube. CT scan showed evidence of free air in the abdomen without abscess. Yesterday, the gastrostomy tube was exchanged without complication. She remains in the intensive care unit on IV antibiotics and observation. There is some question whether she has aspirated during this episode. G-tube was initially placed in May after an episode of aspiration. Due to her ongoing seizures, she has been followed by Neurology, performed an EEG which was nonspecific change. ALLERGIES: None. MEDICATIONS: As noted on JUN including Levaquin and Zosyn. PAST MEDICAL HISTORY: Mental retardation, cerebral palsy, GJ tube placement, seizure disorder, aspiration pneumonia, osteoporosis, dysphagia, gastroesophageal reflux, scoliosis. She is legally blind, hard of hearing. She has a hiatal hernia, hypertension and constipation. FAMILY HISTORY: Noncontributory. SOCIAL HISTORY: Nonsmoker. No significant alcohol intake. REVIEW OF SYSTEMS: The patient was unable to give any details. She has a left IJ catheter in place. GJ tube in place. Jean Baptiste catheter. PHYSICAL EXAMINATION: VITAL SIGNS: She is afebrile. She is tachycardic. Blood pressure has been stable. HEENT: Unremarkable. EXTREMITIES: She was contractured with flexion contractures, both upper and lower extremities. SKIN: Unremarkable. NECK: Supple. LUNGS: Clear anteriorly. [facility] [address] [place] [address] CONSULTATION Name: MK REESE Room #: 213-P [facility] IN .R.#: [id number] Admission: 08/23/17 Attend Phys: Gordon Parikh DO Discharge: Date of : 70 Report #: [id number] HEART: Regular and tachycardic. ABDOMEN: Soft. PEG site was unremarkable. LABORATORY STUDIES: Hemoglobin 11; platelet count 193,000; white count 15,000; 80% segs. Sodium 138, potassium 2.7, bicarbonate 28, creatinine 0.5. Urinalysis unremarkable. CT scan of the abdomen showed air in the peritoneum. No other abnormalities. IMPRESSION: A 47-year-old markedly debilitated with mental retardation, cerebral palsy, ongoing seizure disorder with risk of aspiration who developed gastric outlet obstruction due to her gastrojejunal tube balloon. Suspecting the intraperitoneal air is from gastric distention and leak through the gastric fistula. Overall, the patient appears to be improving following exchange procedure. PLAN: Would recommend continuing antibiotic coverage with Unasyn and fluconazole. Repeat CBC to ensure white count normalizes. Switch to oral therapy once tolerating tube feedings. <ELECTRONICALLY SIGNED> By: Quintin Salinas MD 08/26/17 1554 0909 0153 Quintin Salinas MD /nt
--- NOTE | ~2017-08-23 | EEG ---
[facility] [place] [address] ELECTROENCEPHALOGRAM Name: MK REESE Room #: 213-P ADM IN M.R.#: [id number] Admission: 08/23/17 Attend Phys: Gordon Parikh DO Discharge: Date of : 70 Report #: [id number] THIS REPORT FOR: //name// CC: Gordon Hays DATE OF SERVICE: 08/29/2017 DESCRIPTION: This patient's EEG was done to evaluate the patient for the possibility of seizure. EEG was slow and is about 5-6 Hz and 30 microvolts. A lot of artifact is present. Photic stimulation is unremarkable. EEG appeared to be somewhat slow on both sides and that is a nonspecific abnormality, but can indicate sleep during that time. I do not see any active epileptiform activity, but that is difficult to exclude with so much artifact. IMPRESSION: Very difficult to interpret EEG because the EEG is masked by a lot of artifact. I do not believe there is any active epileptiform activity, but I cannot exclude that because of lot of artifact. Thank you very much for this referral. <ELECTRONICALLY SIGNED> By: Umberto Frost MD 09/02/172151 15 23 Umberto Frost MD /nt
[2017-08-23 19:00] VITALS: BP 123/88
[2017-08-23 23:43] VITALS: BP 123/88
[2017-08-24] VITALS (29 sets, daily range): BP systolic 103–209; BP diastolic 71–198
[2017-08-24 01:51] LABS: HEMATOCRIT 41.4 % (37.0-47.0); HEMOGLOBIN 13.7 gm/dL (12.0-15.0); MCH 31.6 pg (26.0-34.0); MCHC 33.1 g/dL (28.0-37.0); MCV 95.4 fL (80.0-100.0); PLATELET COUNT 310 thou/uL (150-400); RBC 4.34 mil/uL (4.20-5.00); RDW 13.7 % (10.5-14.5); WBC 21.3 thou/uL (4.0-11.0)
[2017-08-24 02:02] LABS: CALCIUM 8.6 mg/dL (8.5-10.1); CREATININE 0.7 mg/dL (0.6-1.0)
[2017-08-24 02:04] LABS: APTT 26.5 Seconds (24.5-32.8); PROTIME 10.7 Seconds (9.3-11.4)
[2017-08-24 02:08] LABS: ALBUMIN 2.8 g/dL (3.4-5.0); TOTAL BILIRUBIN 0.3 mg/dL (<0.1-1.0)
[2017-08-24 02:10] LABS: POTASSIUM 2.8 mmol/L (3.5-5.1)
[2017-08-24 02:18] LABS: ABSOLUTE NEUTROPHILS 18.5 thou/uL (1.4-8.2); ATYPICAL LYMPHS 1 %
[2017-08-24 17:10] LABS: URINE BILIRUBIN NEGATIVE (Negative); URINE BLOOD 1+ (Negative); URINE CLARITY CLEAR; URINE COLOR STRAW; URINE GLUCOSE-RANDOM* NEGATIVE (Negative); URINE KETONES NEGATIVE (Negative); URINE LEUKOCYTES-REFLEX TRACE (Negative); URINE NITRITE-REFLEX NEGATIVE (Negative); URINE PROTEIN (DIPSTICK) NEGATIVE (Negative); URINE SPECIFIC GRAVITY 1.015 (1.005-1.035); URINE UROBILINOGEN 0.2 E.U./dl (0.2-1.0)
[2017-08-24 17:22] LABS: URINE RBC 3-10 Few /HPF (0-2)
[2017-08-24 17:23] LABS: BACTERIA-REFLEX 1-9 Few /HPF (None Seen); CASTS None Seen /LPF (None Seen); CRYSTALS None Seen /LPF (None Seen); SQUAMOUS 0-3 Few /LPF (0-3); URINE WBC-REFLEX 0-5 Rare /HPF (0-5)
[2017-08-25] VITALS (12 sets, daily range): BP systolic 122–143; BP diastolic 70–113
[2017-08-25 04:30] LABS: HEMATOCRIT 33.5 % (37.0-47.0); MCH 31.8 pg (26.0-34.0); MCHC 33.1 g/dL (28.0-37.0); MCV 96.1 fL (80.0-100.0); RBC 3.48 mil/uL (4.20-5.00); RDW 13.6 % (10.5-14.5)
[2017-08-25 04:33] LABS: HEMOGLOBIN 11.1 gm/dL (12.0-15.0); PLATELET COUNT 193 thou/uL (150-400)
[2017-08-25 04:41] LABS: CALCIUM 8.2 mg/dL (8.5-10.1); CREATININE 0.5 mg/dL (0.6-1.0)
[2017-08-25 04:55] LABS: POTASSIUM 2.7 mmol/L (3.5-5.1)
[2017-08-25 08:01] LABS: ANISOCYTOSIS SLIGHT
[2017-08-26 04:29] VITALS: BP 132/85
[2017-08-26 04:37] LABS: ABSOLUTE NEUTROPHILS 12.3 thou/uL (1.4-8.2); BASOPHILS 0.5 % (0.0-2.0); EOSINOPHILS 0.4 % (0.0-3.0); HEMATOCRIT 33.3 % (37.0-47.0); HEMOGLOBIN 11.4 gm/dL (12.0-15.0); LYMPHOCYTES 13.1 % (24.0-44.0); MCH 32.3 pg (26.0-34.0); MCHC 34.2 g/dL (28.0-37.0); MCV 94.5 fL (80.0-100.0); MONOCYTES 11.1 % (1.0-8.0); PLATELET COUNT 238 thou/uL (150-400); POLYS 74.9 % (36.0-66.0); RBC 3.52 mil/uL (4.20-5.00); RDW 13.6 % (10.5-14.5); WBC 16.4 thou/uL (4.0-11.0)
[2017-08-26 04:45] LABS: CALCIUM 8.5 mg/dL (8.5-10.1); CREATININE 0.4 mg/dL (0.6-1.0); POTASSIUM 3.1 mmol/L (3.5-5.1)
[2017-08-26 08:18] VITALS: BP 129/94
[2017-08-26 12:07] VITALS: BP 96/67
[2017-08-26 15:31] VITALS: BP 110/68
[2017-08-26 21:05] VITALS: BP 146/95
[2017-08-27 04:58] VITALS: BP 149/79
[2017-08-27 05:15] LABS: HEMATOCRIT 34.1 % (37.0-47.0); HEMOGLOBIN 11.3 gm/dL (12.0-15.0); MCH 31.4 pg (26.0-34.0); MCHC 33.2 g/dL (28.0-37.0); MCV 94.5 fL (80.0-100.0); PLATELET COUNT 252 thou/uL (150-400); RBC 3.61 mil/uL (4.20-5.00); RDW 13.2 % (10.5-14.5)
[2017-08-27 05:17] LABS: CALCIUM 8.7 mg/dL (8.5-10.1); CREATININE 0.5 mg/dL (0.6-1.0); POTASSIUM 3.1 mmol/L (3.5-5.1)
[2017-08-27 05:57] LABS: ABSOLUTE NEUTROPHILS 11.1 thou/uL (1.4-8.2); ATYPICAL LYMPHS 1 %; METAMYELOCYTES 1 %
[2017-08-27 07:39] VITALS: BP 153/110
[2017-08-27 11:35] VITALS: BP 139/69
[2017-08-27 15:15] VITALS: BP 136/90
[2017-08-27 20:13] VITALS: BP 119/71
[2017-08-28 02:00] VITALS: BP 131/85
[2017-08-28 04:33] LABS: HEMATOCRIT 30.7 % (37.0-47.0); HEMOGLOBIN 10.4 gm/dL (12.0-15.0); MCH 32.3 pg (26.0-34.0); PLATELET COUNT 240 thou/uL (150-400); RBC 3.23 mil/uL (4.20-5.00); RDW 13.6 % (10.5-14.5); WBC 12.5 thou/uL (4.0-11.0)
[2017-08-28 04:45] LABS: CALCIUM 8.3 mg/dL (8.5-10.1); CREATININE 0.5 mg/dL (0.6-1.0); POTASSIUM 3.7 mmol/L (3.5-5.1)
[2017-08-28 04:50] VITALS: BP 108/73
[2017-08-28 05:29] LABS: ABSOLUTE NEUTROPHILS 10.1 thou/uL (1.4-8.2)
[2017-08-28 11:32] VITALS: BP 142/84
[2017-08-28 15:43] VITALS: BP 124/84
[2017-08-28 19:14] VITALS: BP 121/89
[2017-08-28 23:32] VITALS: BP 156/95
[2017-08-29 04:04] VITALS: BP 140/93
[2017-08-29 07:16] VITALS: BP 127/85
[2017-08-29 12:06] VITALS: BP 135/88
[2017-08-29 12:54] VITALS: BP 135/88
[2017-08-29] MEDS ORDERED: ONFI2.5 MG/1 M PO (13:43)
[2017-08-29 15:15] VITALS: BP 149/99
[2017-08-29 19:38] VITALS: BP 147/98
[2017-08-30 05:15] VITALS: BP 157/99
[2017-08-30 07:53] VITALS: BP 132/93
[2017-08-30 11:42] LABS: HEMATOCRIT 32.1 % (37.0-47.0); HEMOGLOBIN 10.9 gm/dL (12.0-15.0); MCH 32.1 pg (26.0-34.0); MCV 94.5 fL (80.0-100.0); RDW 13.8 % (10.5-14.5); WBC 16.7 thou/uL (4.0-11.0)
[2017-08-30 11:49] LABS: PLATELET COUNT 331 thou/uL (150-400)
[2017-08-30 11:54] LABS: CALCIUM 8.6 mg/dL (8.5-10.1); CREATININE 0.5 mg/dL (0.6-1.0); POTASSIUM 3.2 mmol/L (3.5-5.1)
[2017-08-30 12:17] VITALS: BP 148/94
[2017-08-30 12:49] LABS: ABSOLUTE NEUTROPHILS 10.5 thou/uL (1.4-8.2); ANISOCYTOSIS SLIGHT; METAMYELOCYTES 1 %; POLYCHROMASIA OCCASIONAL
[2017-08-30 16:39] VITALS: BP 137/89
[2017-08-30 20:00] VITALS: BP 132/86
[2017-08-31 03:54] VITALS: BP 146/93
[2017-08-31 07:05] VITALS: BP 136/65
[2017-08-31 11:15] VITALS: BP 122/56
[2017-08-31 15:45] VITALS: BP 134/86
[2017-08-31 19:50] VITALS: BP 131/95
[2017-09-01 03:45] VITALS: BP 140/88
[2017-09-01 08:27] VITALS: BP 145/96
[2017-09-01 11:32] VITALS: BP 140/94
[2017-09-01 14:22] LABS: HEMATOCRIT 30.9 % (37.0-47.0); HEMOGLOBIN 10.5 gm/dL (12.0-15.0); MCH 32.3 pg (26.0-34.0); MCHC 34.1 g/dL (28.0-37.0); MCV 94.7 fL (80.0-100.0); PLATELET COUNT 341 thou/uL (150-400); RBC 3.27 mil/uL (4.20-5.00); RDW 13.8 % (10.5-14.5); WBC 12.9 thou/uL (4.0-11.0)
[2017-09-01 14:36] LABS: ALBUMIN 2.2 g/dL (3.4-5.0); CALCIUM 8.9 mg/dL (8.5-10.1); CREATININE 0.5 mg/dL (0.6-1.0); POTASSIUM 3.8 mmol/L (3.5-5.1); TOTAL BILIRUBIN 0.2 mg/dL (<0.1-1.0)
[2017-09-01 14:55] LABS: ABSOLUTE NEUTROPHILS 7.4 thou/uL (1.4-8.2); PLATELET ESTIMATE NORMAL
[2017-09-01 15:45] VITALS: BP 153/88
[2017-09-01 20:12] VITALS: BP 121/74
[2017-09-02 05:00] VITALS: BP 122/65
[2017-09-02 05:46] VITALS: BP 122/65
[2017-09-02 06:44] VITALS: BP 125/85
[2017-09-02 09:22] LABS: HEMATOCRIT 30.3 % (37.0-47.0); HEMOGLOBIN 10.2 gm/dL (12.0-15.0); MCH 32.1 pg (26.0-34.0); MCHC 33.8 g/dL (28.0-37.0); PLATELET COUNT 347 thou/uL (150-400); RBC 3.18 mil/uL (4.20-5.00); RDW 13.4 % (10.5-14.5); WBC 14.5 thou/uL (4.0-11.0)
[2017-09-02 09:28] LABS: CALCIUM 8.8 mg/dL (8.5-10.1); CREATININE 0.4 mg/dL (0.6-1.0); POTASSIUM 3.6 mmol/L (3.5-5.1)
[2017-09-02 09:57] LABS: ABSOLUTE NEUTROPHILS 11.3 thou/uL (1.4-8.2); POLYCHROMASIA SLIGHT
[2017-09-02 11:16] VITALS: BP 111/85
[2017-09-02 15:20] VITALS: BP 133/106
[2017-09-02 20:21] VITALS: BP 136/69
[2017-09-03] VITALS (8 sets, daily range): BP systolic 111–155; BP diastolic 63–103
[2017-09-03 04:45] LABS: HEMATOCRIT 31.4 % (37.0-47.0); HEMOGLOBIN 10.4 gm/dL (12.0-15.0); MCH 31.5 pg (26.0-34.0); MCHC 33.2 g/dL (28.0-37.0); MCV 94.9 fL (80.0-100.0); PLATELET COUNT 398 thou/uL (150-400); RBC 3.31 mil/uL (4.20-5.00); RDW 13.5 % (10.5-14.5); WBC 14.6 thou/uL (4.0-11.0)
[2017-09-03 08:28] LABS: ABSOLUTE NEUTROPHILS 10.2 thou/uL (1.4-8.2); METAMYELOCYTES 1 %; MYELOCYTES 1 %; PLATELET ESTIMATE NORMAL
[2017-09-03] MEDS ORDERED: FLAGYL500 MG PO (15:33)
[2017-09-03] MEDS ORDERED: CEFDINIR300 MG PO (15:33)
[2017-09-04 13:45] VITALS: BP 135/88
== END 2017-09-03 16:21 | disposition home or self-care (01) | DRG 853 ==
LOC: ER 18:59 → EROBS 19:35 → ER 19:35 → EROBS 23:38 → ICU 23:38 → 2N 08-25 17:39
PROVIDERS: Emergency Medicine; Family Medicine; Hospitalist; Nurse Practitioner Family; Specialist
PROC: 0DW63UZ Revision of Feeding Device in Stomach, Percutaneous Approach (ICD-10-PCS; principal; 2017-08-24)
PROC: 02HV33Z Insertion of Infusion Device into Superior Vena Cava, Percutaneous Approach (ICD-10-PCS; principal; 2017-08-24)
PROC: B548ZZA Ultrasonography of Superior Vena Cava, Guidance (ICD-10-PCS; principal; 2017-08-24)
PROC: B5181ZA Fluoroscopy of Superior Vena Cava using Low Osmolar Contrast, Guidance (ICD-10-PCS; principal; 2017-08-24)
DX: A41.9 Sepsis, unspecified organism (principal); J69.0 Pneumonitis due to inhalation of food and vomit; K65.9 Peritonitis, unspecified; E43 Unspecified severe protein-calorie malnutrition; K92.2 Gastrointestinal hemorrhage, unspecified; F72 Severe intellectual disabilities; Z68.1 Body mass index [BMI] 19.9 or less, adult; K94.29 Other complications of gastrostomy; G80.9 Cerebral palsy, unspecified; I10 Essential (primary) hypertension; E86.0 Dehydration; G40.909 Epilepsy, unspecified, not intractable, without status epilepticus; M81.0 Age-related osteoporosis without current pathological fracture; M41.9 Scoliosis, unspecified; E87.6 Hypokalemia; K44.9 Diaphragmatic hernia without obstruction or gangrene; K21.9 Gastro-esophageal reflux disease without esophagitis; H54.8 Legal blindness, as defined in USA; Y83.8 Other surgical procedures as the cause of abnormal reaction of the patient, or of later complication, without mention of misadventure at the time of the procedure; H91.90 Unspecified hearing loss, unspecified ear; Z93.1 Gastrostomy status; Z79.899 Other long term (current) drug therapy; Q05.9 Spina bifida, unspecified; Y92.89 Other specified places as the place of occurrence of the external cause
CPT/HCPCS: 10078; 10797

== ENCOUNTER 2017-09-16 01:31 | Emergency (ER) | payer OTHER ==
[~2017-09-16] VITALS: Ht 167.6 cm; Wt 49.0 kg
[~2017-09-16 01:31] MED LIST changes: +CEFDINIR300 MG PO; +FLAGYL500 MG PO; +ONFI2.5 MG/1 M PO
[2017-09-16 03:07] LABS: HEMATOCRIT 39.2 % (37.0-47.0); HEMOGLOBIN 13.1 gm/dL (12.0-15.0); MCH 31.9 pg (26.0-34.0); MCHC 33.6 g/dL (28.0-37.0); MCV 95.2 fL (80.0-100.0); PLATELET COUNT 479 thou/uL (150-400); RBC 4.12 mil/uL (4.20-5.00); WBC 9.4 thou/uL (4.0-11.0)
[2017-09-16 03:14] LABS: ANION GAP 5 mmol/L (7-16); BUN 12 mg/dL (7-18); CALCIUM 9.7 mg/dL (8.5-10.1); CHLORIDE 101 mmol/L (98-107); CO2 32 mmol/L (21-32); CREATININE 0.5 mg/dL (0.6-1.0); GLUCOSE 90 mg/dL (74-106); POTASSIUM 4.5 mmol/L (3.5-5.1); SODIUM 138 mmol/L (136-145)
[2017-09-16 03:19] LABS: DIRECT BILIRUBIN < 0.1 mg/dL (<0.1-0.3); LIPASE 156 U/L (73-393); SGOT 19 U/L (15-37); SGPT 14 U/L (30-65); TOTAL BILIRUBIN 0.2 mg/dL (<0.1-1.0); TOTAL PROTEIN 8.2 g/dL (6.4-8.2)
[2017-09-16 04:00] LABS: ABSOLUTE NEUTROPHILS 4.9 thou/uL (1.4-8.2)
== END 2017-09-16 05:16 | disposition short-term general hospital (02) ==
LOC: ER 01:31
PROVIDERS: Emergency Medicine
DX: K29.70 Gastritis, unspecified, without bleeding (principal); K21.9 Gastro-esophageal reflux disease without esophagitis; I10 Essential (primary) hypertension

== ENCOUNTER 2017-09-30 08:11 | Emergency (ER) | payer OTHER ==
[~2017-09-30] VITALS: Ht 157.5 cm; Wt 52.2 kg
== END 2017-09-30 14:30 | disposition home or self-care (01) ==
LOC: ER 08:11
DX: K94.23 Gastrostomy malfunction (principal); G80.9 Cerebral palsy, unspecified; M81.0 Age-related osteoporosis without current pathological fracture; K21.9 Gastro-esophageal reflux disease without esophagitis; I10 Essential (primary) hypertension; Y83.8 Other surgical procedures as the cause of abnormal reaction of the patient, or of later complication, without mention of misadventure at the time of the procedure; Y92.89 Other specified places as the place of occurrence of the external cause

== ENCOUNTER 2017-10-10 11:15 | Emergency (ER) | payer OTHER ==
[~2017-10-10] VITALS: Ht 167.6 cm; Wt 50.4 kg
== END 2017-10-10 18:21 | disposition home or self-care (01) ==
LOC: ER 11:15
DX: Z43.1 Encounter for attention to gastrostomy (principal); K21.9 Gastro-esophageal reflux disease without esophagitis; I10 Essential (primary) hypertension

== ENCOUNTER 2017-10-27 14:17 | Emergency (ER) | payer OTHER ==
[~2017-10-27] VITALS: Ht 152.4 cm; Wt 40.8 kg
== END 2017-10-27 18:24 | disposition home or self-care (01) ==
LOC: ER 14:17
DX: Z46.59 Encounter for fitting and adjustment of other gastrointestinal appliance and device (principal); K21.9 Gastro-esophageal reflux disease without esophagitis; I10 Essential (primary) hypertension

== ENCOUNTER 2017-11-03 16:34 | Emergency (ER) | payer OTHER ==
[~2017-11-03] VITALS: Ht 149.9 cm; Wt 40.8 kg
== END 2017-11-03 18:00 | disposition home or self-care (01) ==
LOC: ER 16:34
DX: K94.23 Gastrostomy malfunction (principal); K21.9 Gastro-esophageal reflux disease without esophagitis; I10 Essential (primary) hypertension; M81.0 Age-related osteoporosis without current pathological fracture

== ENCOUNTER 2017-11-08 01:31 | Emergency (ER) | payer OTHER ==
[~2017-11-08] VITALS: Ht 149.9 cm; Wt 40.8 kg
== END 2017-11-08 04:14 ==
LOC: ER 01:31
DX: K94.23 Gastrostomy malfunction (principal); M81.0 Age-related osteoporosis without current pathological fracture; K21.9 Gastro-esophageal reflux disease without esophagitis; I10 Essential (primary) hypertension

== ENCOUNTER → 2017-11-12 | Outpatient (CLI) | payer OTHER ==
[2017-11-12 08:27] VITALS: BP 121/69
== END | disposition home or self-care (01) ==
LOC: SPEC 08:08
DX: K94.23 Gastrostomy malfunction (principal); I10 Essential (primary) hypertension; M81.0 Age-related osteoporosis without current pathological fracture; K21.9 Gastro-esophageal reflux disease without esophagitis; G40.909 Epilepsy, unspecified, not intractable, without status epilepticus; Z87.01 Personal history of pneumonia (recurrent); Z87.440 Personal history of urinary (tract) infections; Z79.899 Other long term (current) drug therapy

== ENCOUNTER → 2018-02-02 | Outpatient (CLI) | payer OTHER | END | disposition home or self-care (01) | LOC: SPEC 08:17 | DX: K94.23 Gastrostomy malfunction (principal); K59.00 Constipation, unspecified; G40.909 Epilepsy, unspecified, not intractable, without status epilepticus; K29.70 Gastritis, unspecified, without bleeding; G80.9 Cerebral palsy, unspecified; J96.00 Acute respiratory failure, unspecified whether with hypoxia or hypercapnia; A41.9 Sepsis, unspecified organism; Z79.899 Other long term (current) drug therapy; Y83.8 Other surgical procedures as the cause of abnormal reaction of the patient, or of later complication, without mention of misadventure at the time of the procedure ==

== ENCOUNTER 2018-03-02 23:28 | Inpatient (IN) | payer OTHER ==
[~2018-03-02] VITALS: Ht 167.6 cm; Wt 47.4 kg
--- NOTE | ~2018-03-02 | EKG ---
[place] [address] [facility] [employer] [place] [address] ELECTROCARDIOGRAM REPORT Name: MK REESE Room #: 243- ADM IN M.R.#: [id number] Admission: 03/03/18 Attend Phys: Julian Walter MD Discharge: Date of : 70 Report #: [id number] THIS REPORT FOR: //name// [facility] Test Date: 2018-03-12 Test Time: 07:55:13 Pat Name: MK REESE Department: Room: 243 Gender: F Non Linear Editor: SAUNDRA : 1970 Requested By: Kevin Gant Order Number: [id number] MD: Abdoulaye Araujo Measurements Intervals [place] Rate: 128 P: 40 NM: 128 QRS: 37 QRSD: 61 T: QT: 334 QTc: 488 Interpretive Statements Sinus tachycardia Borderline repol abnormality, diffuse leads Borderline prolonged QT interval Compared to ECG 03/11/2018 23:11:35 No significant changes Electronically Signed On 03-13-2018 7:33:56 SENIOR CENTER MANAGER by Abdoulaye Araujo [email or web address] <ELECTRONICALLY SIGNED> By: Abdoulaye Araujo MD, [facility] 03/13/18 0733 0755 0755 Abdoulaye Araujo MD, [facility] /EPI
--- NOTE | ~2018-03-02 | EKG ---
[address] [employer] [address] ELECTROCARDIOGRAM REPORT Name: MK REESE Room #: 243-P ADM IN M.R.#: [id number] Admission: 03/03/18 Attend Phys: Julian Walter MD Discharge: Date of : 70 Report #: [id number] THIS REPORT FOR: //name// [facility] Test Date: 2018-03-05 Test Time: 07:39:30 Pat Name: MK REESE Department: Room: 243 P Gender: F Executive Assistant: SAUNDRA : 1970 Requested By: Misa Pedroza Order Number: [id number] MD: Abdoulaye Araujo Measurements Intervals [place] Rate: 76 P: 20 VT: 117 QRS: 44 QRSD: 74 T: 207 QT: 456 QTc: 513 Interpretive Statements Sinus rhythm Borderline short VT interval Abnormal R-wave progression, early transition Nonspecific ST and T wave abnormality Prolonged QT interval Compared to ECG 08/26/2017 14:19:14 No significant change was found Electronically Signed On 03-05-2018 8:17:50 HIDE PASTER by Abdoulaye Araujo [email or web address] <ELECTRONICALLY SIGNED> By: Abdoulaye Araujo MD, [facility] 03/05/18 0817 0739 0739 Abdoulaye Araujo MD, [facility] /EPI
--- NOTE | ~2018-03-02 | O ---
[facility] [place] [address] OPERATIVE REPORT Name: MK REESE Room #: 243-P ADM IN M.R.#: [id number] Admission: 03/03/18 Attend Phys: Julian Walter MD Discharge: Date of : 70 Report #: [id number] THIS REPORT FOR: //name// CC: FAM unknown Julian Walter PROCEDURE: Diagnostic bronchoscopy. CLINICAL HISTORY: A 47-year-old female with acute respiratory failure. CLINICAL HISTORY: Chest x-ray following intubation continued to show atelectasis involving the right lung field suggestive of right mainstem bronchus, mucus plugging. Diagnostic bronchoscopy was performed. DESCRIPTION OF PROCEDURE: A disposable flexible fiberoptic bronchoscope was utilized. Through the previously placed ET tube, the bronchoscope was then introduced without difficulty. Distal trachea was unremarkable. Sofi was unremarkable. Left mainstem bronchus, left upper lobe and left lower lobe were normal. The right mainstem bronchus, right upper lobe, right middle lobe and right lower lobe were grossly unremarkable. No evidence of mucus plugging noted. The patient tolerated the procedure well. No complications noted. <ELECTRONICALLY SIGNED> By: Owen Ramirez MD 03/04/18 1805 1646 1721 Owen Ramirez MD /nt
--- NOTE | ~2018-03-02 | HC ---
[facility] [place] [address] CONSULTATION Name: MK REESE Room #: 243-P [facility] IN M.R.#: [id number] Admission: 03/03/18 Attend Phys: Julian Walter MD Discharge: Date of : 70 Report #: [id number] THIS REPORT FOR: //name// CC: FAM unknown Julian Walter DATE OF SERVICE: 03/03/2018 TYPE OF REPORT: Infectious diseases consultation. REASON FOR CONSULTATION: Sepsis and pneumonia. HISTORY OF PRESENT ILLNESS: The patient is a 47-year old underlying history of cerebral palsy. She lives in a assisted. She has had issues with seizures and aspiration pneumonia. She has a PEG tube in place. She presents to the Emergency Room when the staff had noticed that she was acting uncomfortable as they were using her PEG tube for feedings. No further information was available. The patient could not give any details and the patient's family at the bedside did not know any details either. She had a history of PEG tube malfunction. Following admission through the Emergency Room, she was placed in the Intensive Care Unit. She is in respiratory failure, now on BiPAP. Unable to give me any further details. She has intermittent cough. Appeared to have aspirated. No diarrhea. Unable to catheterize urinary tract and has an external catheter in place now. Has a wound to her left iliac crest region, which is stable. PAST MEDICAL HISTORY: Unchanged from my previous consultation in July and not of the current history and physical. FAMILY HISTORY: Unchanged from my previous consultation in July and not of the current history and physical. SOCIAL HISTORY: Unchanged from my previous consultation in July and not of the current history and physical. REVIEW OF SYSTEMS: The patient is unable to give any details. PHYSICAL EXAMINATION: VITAL SIGNS: She was afebrile and hemodynamically stable. She was on 70% BiPAP. GENERAL: She has contractures of upper and lower extremities. She was unable to follow commands. She has a peripheral IV in place. HEENT: Eyes: No conjunctival injection or scleral icterus. Mouth without lesion. NECK: Neck was stiff as was her general muscle tone. No JVD or thyromegaly. [facility] [address] [place] [address] CONSULTATION Name: MK REESE Room #: 243-P ADM IN M.R.#: [id number] Admission: 03/03/18 Attend Phys: Julian Walter MD Discharge: Date of : 70 Report #: [id number] LUNGS: Coarse bilaterally with consolidation in the right posterior chest. HEART: Regular, without murmur, gallop or rub. ABDOMEN: Soft. PEG site was unremarkable with no drainage. No hepatosplenomegaly or mass. EXTREMITIES: Without peripheral edema or cyanosis. BACK: Kyphosis. Skin with decubitus to the right pelvis. No palpable adenopathy. NEUROLOGICAL: The patient did move all extremities but was unable to cooperate with exam. PSYCHIATRIC: Unable to evaluate. LABORATORY STUDIES: Sodium 135, potassium 3.5, bicarbonate of 45 and creatinine 4.6. AST 102, ALT 16 and lactate 7. Urinalysis unremarkable. Procalcitonin 0.37. Hemoglobin 10; WBC 21.6 and platelet count 209,000. RADIOLOGICAL DATA: Chest x-ray, extensive right lung infiltrate with effusion. ABG on 70% BIPAP showed a pO2 of 65, pCO2 of 59, pH 7.5, bicarbonate of 51 and lactate 2.9. IMPRESSION: 1. A 47-year old advanced cerebral palsy, unable to communicate assisted resident with frequent hospitalizations for aspiration pneumonia. I suspect aspiration pneumonias or current issue. She has extensive right lung infiltrate with associated effusion. I question whether we have got outlet obstruction issue from her gastrostomy tube. This is to be further evaluated. 2. Metabolic alkalosis and acute kidney injury. 3. Anemia. RECOMMENDATIONS: We will continue with broad antibiotic coverage, adjusted for renal failure. Screen for MRSA. Unable to obtain sputum culture. GI evaluation by General Surgery in progress. Obtain central venous access. Continue supportive efforts and aspiration precautions. Nephrology service is to assist with acute kidney injury and metabolic alkalosis. <ELECTRONICALLY SIGNED> By: Quintin Salinas MD 03/04/18 1503 [id number] 0435 Quintin Salinas MD /nt
--- NOTE | ~2018-03-02 | EKG ---
[address] [place] [address] ELECTROCARDIOGRAM REPORT Name: MK REESE Room #: 243-P ADM IN M.R.#: [id number] Admission: 03/03/18 Attend Phys: Julian Walter MD Discharge: Date of : 70 Report #: [id number] THIS REPORT FOR: //name// [facility] Test Date: 2018-03-04 Test Time: 17:47:54 Pat Name: MK REESE Department: Room: 243 P Gender: F Animal Rescuer: Giovanni LLANES : 1970 Requested By: Misa Pedroza Order Number: [id number] MD: Abdoulaye Araujo Measurements Intervals [place] Rate: 83 P: 8 MA: 108 QRS: 40 QRSD: 77 T: 210 QT: 405 QTc: 476 Interpretive Statements Sinus rhythm Short MA interval Abnormal R-wave progression, early transition Nonspecific ST and T wave abnormality Compared to ECG 08/26/2017 14:19:14 Heart rate has slowed Atrial premature complexes are no longer present Electronically Signed On 03-05-2018 8:03:46 CABLE SPLICING TECHNICIAN by Abdoulaye Araujo [email or web address] <ELECTRONICALLY SIGNED> By: Abdoulaye Araujo MD, [facility] 03/05/18 0803 1747 1747 Abdoulaye Araujo MD, [facility] /EPI
--- NOTE | ~2018-03-02 | EKG ---
[address] [place] [address] ELECTROCARDIOGRAM REPORT Name: MK REESE Room #: 243-P ADM IN M.R.#: [id number] Admission: 03/03/18 Attend Phys: Julian Walter MD Discharge: Date of : 70 Report #: [id number] THIS REPORT FOR: //name// [facility] Test Date: 2018-03-07 Test Time: 11:29:30 Pat Name: MK REESE Department: Room: 243 P Gender: F Criminal Court Judge: Giovanni LLANES : 1970 Requested By: Abdoulaye Araujo Order Number: [id number] MD: Abdoulaye Araujo Measurements Intervals [place] Rate: 134 P: -6 MN: 138 QRS: 20 QRSD: 70 T: 226 QT: 272 QTc: 406 Interpretive Statements Sinus tachycardia Nonspecific ST and T wave abnormality Compared to ECG 03/05/2018 07:39:30 Heart rate has increased Nonspecific change in the ST and T-wave segments Electronically Signed On 03-08-2018 9:23:44 SENIOR SHIPPING CLERK by Abdoulaye Araujo [email or web address] <ELECTRONICALLY SIGNED> By: Abdoulaye Araujo MD, [facility] 03/08/18 0923 1129 1129 Abdoulaye Araujo MD, [facility] /EPI
--- NOTE | ~2018-03-02 | HC ---
[facility] [place] [address] CONSULTATION Name: MK REESE Room #: 243-P ADM IN M.R.#: [id number] Admission: 03/03/18 Attend Phys: Julian Walter MD Discharge: Date of : 70 Report #: [id number] THIS REPORT FOR: //name// CC: FAM unknown Julian Walter DATE OF SERVICE: 03/03/2018 REASON FOR CONSULTATION: Electrolyte issues. REASON FOR PRESENTATION: Presented from her nursing facility because of facial grimaces. HISTORY OF PRESENT ILLNESS: I am not able to obtain any details of the history of present illness from the patient. I am not really sure about her comorbid conditions. It does look like that she has cerebral palsy, contractures of upper extremities, lower extremities, tube feed dependent. She presented to the Emergency Room because her sterile processing manager was concerned that she has been having some facial grimacing. On presentation to the Emergency Room she was found to have leukocytosis with white blood cell count of 22,000. Sodium was 131, creatinine was 5.4, BUN was 107 mandating a Nephrology consultation. PAST MEDICAL HISTORY: 1. Mental retardation. 2. Cerebral palsy. 3. Seizure disorder. 4. Aspiration pneumonia. 5. Scoliosis. 6. Limbs deformities. 7. Legal blindness. 8. Hiatal hernia. 9. Post-J tube placement. MEDICATIONS: Listed amongst her nursing facility medications: 1. Sodium phosphate. 2. Loratadine. 3. Esomeprazole. 4. Silver sulfadiazine. 5. Keppra. ALLERGIES: Unknown. SOCIAL HISTORY: Unobtainable given the patient's mental status. FAMILY HISTORY: Unobtainable given the patient's mental status. [facility] [address] [place] [address] CONSULTATION Name: MK REESE Room #: 243-P [facility] IN M.R.#: [id number] Admission: 03/03/18 Attend Phys: Julian Walter MD Discharge: Date of : 70 Report #: [id number] REVIEW OF SYSTEMS: Unobtainable given the patient's mental status. PHYSICAL EXAMINATION: VITAL SIGNS: Temperature 36.5, pulse rate 64, blood pressure 112/83. HEAD AND NECK: No jugular venous distention, extremely dry mucous membrane. CHEST: Decreased air entry bilaterally. No crackles. CARDIOVASCULAR: No rub detected. ABDOMEN: Soft, nontender. Feeding tube in place. LOWER EXTREMITIES: Contracture deformities. LABORATORY DATA: Reviewed. White blood cell count 22.9. Chemistry from today is pending; however, yesterday's chemistry revealed a sodium of 131, potassium of 1.9, carbon dioxide of 45, BUN of 107 and a creatinine of 5.4. Lactic acid on presentation was 6.9. AST and other liver enzymes are pending. Chest x-ray reviewed, hardware of the spine fixation procedure is present on the x-ray. Otherwise, no acute abnormality detected. ASSESSMENT, IMPRESSION, PLAN: 1. Acute kidney injury. 2. Severe contraction alkalosis. 3. Hyponatremia. 4. Hypokalemia. 5. Mental retardation. 6. Cerebral palsy. 7. Status post PEG tube. 8. Her electrolyte issues, acute kidney injury seem to be all related to ongoing acute process including potential sepsis and prerenal picture. I will send appropriate acute kidney injury workup. 9. Needs aggressive fluid resuscitation given her hypotension and lactic acidosis in the last 24 hours. 10. We will wait for repeat labs before adjusting and replacing any electrolytes. Potassium has been replaced; however, it is still extremely low. 11. She has very significant contraction alkalosis that should rectify with saline infusion. 12. Blood gas is pending. 13. Appropriate antibiotic initiation as per the hospitalist team. 14. Cultures pending. 15. We will continue to follow along. <ELECTRONICALLY SIGNED> By: Kassi Diaz MD 03/05/18 0831 0906 2159 Kassi Diaz MD /nt
--- NOTE | ~2018-03-02 | EKG ---
[address] [place] [address] ELECTROCARDIOGRAM REPORT Name: MK REESE Room #: 243-P ADM IN M.R.#: [id number] Admission: 03/03/18 Attend Phys: Julian Walter MD Discharge: Date of : 70 Report #: [id number] THIS REPORT FOR: //name// [facility] Test Date: 2018-03-11 Test Time: 23:11:35 Pat Name: MK REESE Department: Room: 243 P Gender: F Professional Services Manager: marshal : 1970 Requested By: June Arnett Order Number: [id number] MD: Abdoulaye Araujo Measurements Intervals [place] Rate: 153 P: 47 CT: 120 QRS: 40 QRSD: 61 T: 178 QT: 219 QTc: 350 Interpretive Statements Sinus tachycardia Nonspecific repol abnormality, diffuse leads Compared to ECG 03/07/2018 11:29:30 No significant change was found Electronically Signed On 03-12-2018 7:52:44 PROFESSOR OF PRACTICE by Abdoulaye Araujo [email or web address] <ELECTRONICALLY SIGNED> By: Abdoulaye Araujo MD, [facility] 03/12/18 0752 10 10 Abdoulaye Araujo MD, [facility] /EPI
--- NOTE | ~2018-03-02 | 2DMMODE ---
[facility] [address] [place] [address] 2 D/M-MODE ECHOCARDIOGRAM Name: MK REESE Room #: 243-P ADM IN M.R.#: [id number] Admission: 03/03/18 Attend Phys: Julian Walter, Discharge: Date of : 70 Date of Service: 03/12/18 1215 Report #: [id number] THIS REPORT FOR: //name// APPROVED REPORT Study performed: 03/12/2018 09:35:53 EXAM: Limited 2D, Doppler, and color-flow Echocardiogram Patient Location: ICU Room #: 243 Status: routine BSA: 1.60 HR: 103 bpm BP: 106/73 mmHg Rhythm: Tachycardia Other Information Study Quality: Adequate Technically limited study due to Cerebal Palsy. Indications Tachycardia 2D Dimensions IVSd: 8.21 (7-11mm) LVDd: 30.05 mm PWd: 9.15 (7-11mm) LVDs: 19.59 (25-40mm) Left Atrium: 33.44 (27-40mm) LV Single Plane 4CH: 67.16 % LV Single Plane 2CH: 62.21 % Mitral Valve MV Decel. Time: 97.81 ms MV PHT: 28.37 ms Tricuspid Valve TR Peak Joaquín.: 3.39 m/s RAP Estimate: 5.00 mmHg TR Peak Gr.: 46.06 mmHg PA Pressure: 51.00 mmHg Left Ventricle The left ventricle is normal size. There is normal left ventricular wall thickness. The left ventricular systolic function is normal. The left ventricular ejection fraction is within the normal range. LVEF [facility] [address] [place] [address] 2 D/M-MODE ECHOCARDIOGRAM Name: MK REESE Room #: 243-P [facility] IN .R.#: [id number] Admission: 03/03/18 Attend Phys: Julian Walter, Discharge: Date of : 70 Date of Service: 03/12/18 1215 Report #: [id number] is 60-65%. Right Ventricle The right ventricle is normal size. The right ventricular systolic function is normal. Aortic Valve The aortic valve is normal in structure. No aortic regurgitation is present. Mitral Valve The mitral valve is normal in structure. Trace to mild mitral regurgitation. Tricuspid Valve Moderate tricuspid regurgitation. Estimated PAP is 50 mmHG. Great Vessels IVC is normal in size and collapses >50% with inspiration. Pericardium There is no pericardial effusion. <Conclusion> Abbreviated echocardiogram The left ventricular systolic function is normal. LVEF is 60-65%. The aortic valve is normal in structure. No aortic regurgitation is present. The mitral valve is normal in structure. Trace to mild mitral regurgitation. Moderate tricuspid regurgitation. Estimated pulmonary artery pressure of 50 mmHG. There is no pericardial effusion. <ELECTRONICALLY SIGNED> By: Abdoulaye Araujo MD, FACC 03/12/181214 14 14 Abdoulaye Araujo MD, FACC /INF
--- NOTE | ~2018-03-02 | HC ---
[facility] [place] [address] CONSULTATION Name: MK REESE Room #: 243-P [facility] IN M.R.#: [id number] Admission: 03/03/18 Attend Phys: Julian Walter MD Discharge: Date of : 70 Report #: [id number] THIS REPORT FOR: //name// CC: FAM unknown Julian Walter DATE OF SERVICE: 03/03/2018 CHIEF COMPLAINT: Pressure ulceration. HISTORY OF PRESENT ILLNESS: This is a 47-year-old female patient with advanced cerebral palsy. The patient has a history of seizures at approximately 5 months of age. She developed spasticity and contractures following those episodes of seizures, presumably had some form of an anoxic event. Details are not further available. This information obtained from the patient's mother at the bedside. She normally lives in a [facility]. She was sent to the Emergency Department by ambulance. She was making facial grimaces and believes she was in pain. She has a J-G tube. She is nonverbal. PAST MEDICAL HISTORY: Positive for cerebral palsy likely due to anoxic injury at early age. She has a history of a J-tube placement. She has a history of seizures, aspiration pneumonia, gastroesophageal reflux, scoliosis, constipation, incontinence. SOCIAL HISTORY: The patient is negative for any alcohol or tobacco use. FAMILY HISTORY: Unknown. REVIEW OF SYSTEMS: Not obtainable due to the patient's condition. PHYSICAL EXAMINATION: VITAL SIGNS: At this time include temperature is 36.3, pulse rate is 64, respiration of 12, blood pressure 112/83. GENERAL: This is a chronically ill-appearing female patient who appears to be in mild respiratory discomfort. HEAD AND NECK: Normocephalic. Neck demonstrates some spasticity. LUNGS: Diminished. HEART: Regular rhythm, tachycardic. ABDOMEN: Soft. J-tube is noted. Examination of the pelvic region demonstrates what appears to be a circular area of eschar involving the right posterior iliac crest. This is a pressure ulcer that is unstageable due to presence of eschar, is dry and mostly stable and intact. No sign of infection. EXTREMITIES: Show contractures in all 4 extremities. No other areas of pressure ulceration are noted. NEUROLOGIC: The patient has significant spasticity. She is not responsive to verbal stimuli. [address] [address] CONSULTATION Name: MK REESE Room #: [facility] IN M.R.#: [id number] Admission: 03/03/18 Attend Phys: Julian Walter MD Discharge: Date of : 70 Report #: [id number] LABORATORY DATA: Sodium 135, potassium 3.5, chloride 81, CO2 of 45, BUN 98, creatinine 4.6. Her last baseline creatinine on 09/08/2017 was 0.4. Albumin is low at 2.3. White blood cell count is 22.9. CLINICAL IMPRESSION: 1. An unstageable pressure ulcer to the right posterior iliac crest. 2. Spasticity and flexion contractures all four extremities due to underlying anoxic brain injury/cerebral palsy. 3. Acute kidney injury. RECOMMENDATIONS: At this point in time, we will place a Bordered Foam to the pressure ulcer on the posterior iliac crest, change it Friday, Friday, Friday and as needed. This may require some debridement at some point in time, but it is not infected, it is dry and stable and I do not believe it has any part in her current clinical picture. I do not feel that a surgical debridement would be appropriate at this juncture, although as she improves it may be worth considering. She will be on a low air loss mattress, need q. 2 hour turning and position, aggressive nutritional support to maximize wound healing. I have discussed all findings with the patient's mother at the bedside who is agreeable to this plan of care. I appreciate being asked to see her in consultation. <ELECTRONICALLY SIGNED> By: Tacos Tomlin MD 03/09/18 1911 [id number] 1316 Tacos Tomlin MD /nt
--- NOTE | ~2018-03-02 | HC ---
[facility] [place] [address] CONSULTATION Name: MK REESE Room #: 243-P [facility] IN M.R.#: [id number] Admission: 03/03/18 Attend Phys: Julian Walter MD Discharge: Date of : 70 Report #: [id number] THIS REPORT FOR: //name// CC: FAM unknown Julian Walter DATE OF SERVICE: 03/03/2018 REFERRING PHYSICIAN: Dr. Walter. REASON FOR REFERRAL: Acute respiratory distress. HISTORY OF PRESENT ILLNESS: The patient is a 47-year-old female who was admitted with acute kidney injury, dehydration. Since admission, overnight, the patient became hypoxic. A pulmonary consultation was requested. The patient has cerebral palsy along with mental retardation. [place] [facility] [place]. She was in her usual state of health until on the day of presentation to the Emergency Room, the patient was found to have facial grimacing. Currently, she is on BiPAP. She appears mildly distressed. She is in a position. Moderate muscle atrophy is noted. She is nonverbal. At the Radiology Department, having worked down on the gastrostomy tube, the patient was felt to have aspirated prior to respiratory distress. PAST MEDICAL HISTORY: Cerebral palsy, mental retardation, seizure disorder, history of aspiration pneumonia, osteoporosis, dysphagia, status post J-tube placement, gastroesophageal reflux disease, scoliosis, she is legally blind, hiatal hernia, hypertension, constipation and incontinence. MEDICATIONS: List reviewed. This include Keppra, Lopressor, Valium, Tums, Robitussin, Claritin, Zofran, Nexium, Dulcolax, Fleets enema p.r.n., multivitamins. FAMILY HISTORY: Noncontributory. SOCIAL HISTORY: She has a mother who is the DPOA. No history of tobacco or alcohol use. REVIEW OF SYSTEMS: Deferred as the patient is not able to provide answers. PHYSICAL EXAMINATION: GENERAL: She is awake, eyes open, in mild distress. VITAL SIGNS: Temperature is 97.7 degrees Fahrenheit, pulse is 70, respiratory [facility] [address] [place] [address] CONSULTATION Name: MK REESE Room #: [facility] IN ..#: [id number] Admission: 03/03/18 Attend Phys: Julian Walter MD Discharge: Date of : 70 Report #: [id number] rate is 18, blood pressure 110/83 mmHg, saturation 94%. HEENT: Normocephalic, atraumatic. NECK: Supple, without any lymphadenopathy or thyromegaly. CHEST: Breath sounds are fair. Air movements are decreased due to poor effort. No obvious rales or wheezes. CARDIOVASCULAR: Heart sounds are distant. No obvious murmurs or gallop. Pulses were both 2+/4+ bilaterally. BREASTS: Exam is deferred. ABDOMEN: Soft, nontender, no organomegaly or masses felt. GENITOURINARY: Deferred. RECTAL: Deferred. EXTREMITIES: No cyanosis, clubbing, edema. MUSCULOSKELETAL: Notable for moderate muscle atrophy. LABORATORY DATA: Portable chest x-ray shows scoliosis, metal danya along the spine, film is somewhat rotated, mild haziness in the left lung field. Lactic acid is 6.9. Procalcitonin is 0.37. CT abdomen and pelvis was notable for right lower lobe infiltrates. Admitting arterial blood gas reveals a pH 7.49, pCO2 of 71, pO2 of 51 on 8 liters of O2. Sodium 131, potassium 1.9, chloride 71, CO2 is 45, BUN is 107, creatinine is 5.4, albumin 2.3. WBC 22,900, hemoglobin 10.3, platelets are normal. IMPRESSION: 1. Acute respiratory distress in this 47-year-old female with cerebral palsy and mental retardation. Her chest x-ray shows right-sided infiltrates with suspicion of aspiration. Etiology is aspiration pneumonia along with generalized debility. Aspiration pneumonia is likely the source. Pulmonary embolus is felt to be less likely. 2. Severe metabolic alkalosis with respiratory compensation. 3. Acute kidney injury. Etiology is due to probable volume contraction. 4. Hypokalemia. 5. Leukocytosis, likely related to above. 6. Severe protein-calorie malnutrition. 7. Abdominal pain, etiology undetermined. 8. Hypotension, felt to be related to volume depletion versus possible sepsis. 9. Dysphagia, status post J-tube. 10. Medical directive: Full code blue. 11. Prognosis overall is felt to be poor given severe comorbid condition. RECOMMENDATION: We will continue noninvasive ventilation, keep saturation 90%. The patient may ultimately need intubation if not able to stabilize. Continue fluid replacement, electrolyte replacement as you are. DVT and GI prophylaxis recommended. [address] [address] CONSULTATION Name: MK REESE VEENA Room #: 243-P ADM IN M.R.#: [id number] Admission: 03/03/18 Attend Phys: Julian Walter MD Discharge: Date of : 70 Report #: [id number] Thank you for this consultation. <ELECTRONICALLY SIGNED> By: Owen Ramirez MD 03/04/18 1805 1655 2245 Owen Ramirez MD /nt
--- NOTE | ~2018-03-02 | O ---
[facility] [place] [address] OPERATIVE REPORT Name: MK REESE Room #: 243-P ADM IN M.R.#: [id number] Admission: 03/03/18 Attend Phys: Julian Walter MD Discharge: Date of : 70 Report #: [id number] THIS REPORT FOR: //name// CC: FAM unknown Julian Walter PROCEDURE: Emergent intubation. CLINICAL HISTORY: A 47-year-old female with cerebral palsy, mental retardation, now with acute respiratory distress. Urgent intubation was performed. DESCRIPTION OF PROCEDURE: The patient was given approximately 8 mL of Diprivan. I was able to then use a GlideScope #3 to visualize the vocal cord. A 7 mm ET tube was then placed with a stylet. ET tube was then secured at about 23 at the lip. The stylet was removed. Color change on the capnometer was confirmatory. Portable chest x-ray shows ET tube approximately 2.5 cm above the tanisha. No complications noted. <ELECTRONICALLY SIGNED> By: Owen Ramirez MD 03/04/18 1805 1646 1721 Owen Ramirez MD /nt
--- NOTE | ~2018-03-02 | 2DMMODE ---
[facility] [address] [place] [address] 2 D/M-MODE ECHOCARDIOGRAM Name: MK REESE Room #: 243-P ADM IN M.R.#: [id number] Admission: 03/03/18 Attend Phys: Julian Walter, Discharge: Date of : 70 Date of Service: 03/05/18 0750 Report #: [id number] THIS REPORT FOR: //name// APPROVED REPORT Study performed: 03/05/2018 06:21:52 EXAM: Comprehensive 2D, Doppler, and color-flow Echocardiogram Patient Location: ICU Room #: 243 Status: routine BSA: 1.48 HR: 76 bpm BP: 114/81 mmHg Rhythm: NSR Other Information Study Quality: Adequate Technically limited study due to thin body habitus and patient on vent.. Indications Tachycardia, elevated troponin. Hx: Cerebral palsy, seizures, HTN 2D Dimensions RVDd: 28.46 mm IVSd: 9.63 (7-11mm) LVOT Diam: 18.98 (18-24mm) LVDd: 31.93 mm PWd: 6.08 (7-11mm) LVDs: 19.10 (25-40mm) Aortic Root: 29.67 mm Volumes Left Atrial Volume (Systole) Single Plane 4CH: 27.13 mL Single Plane 2CH: 20.99 mL LA ESV Index: 18.00 mL/m2 Aortic Valve AoV Peak Joaquín.: 0.94 m/s AO Peak Gr.: 3.55 mmHg LVOT Max P.26 mmHg LVOT Max V: 0.90 m/s USMAN Vmax: 2.71 cm2 Mitral Valve E/A Ratio: 5.[address] [facility] [place] [address] 2 D/M-MODE ECHOCARDIOGRAM Name: MK REESE Room #: [facility] IN [facility].#: [id number] Admission: 03/03/18 Attend Phys: Julian Walter, Discharge: Date of : 70 Date of Service: 03/05/18 0750 Report #: [id number] MV Decel. Time: 132.14 ms MV E Max Joaquín.: 1.22 m/s MV A Joaquín.: 0.22 m/s MV PHT: 32.41 ms IVRT: 58.82 ms Pulmonary Valve PV Peak Joaquín.: 0.80 m/s PV Peak Gr.: 2.58 mmHg Tricuspid Valve TR Peak Joaquín.: 3.07 m/s RAP Estimate: 10.00 mmHg TR Peak Gr.: 37.71 mmHg PA Pressure: 48.00 mmHg Left Ventricle The left ventricle is normal size. There is normal LV segmental wall motion. There is normal left ventricular wall thickness. Left ventricular systolic function is normal. LVEF is 60-65%. Right Ventricle The right ventricle is normal size. The right ventricular systolic function is normal. Atria The left atrium size is normal. The right atrium size is normal. Aortic Valve The aortic valve is normal in structure. No aortic regurgitation is present. There is no aortic valvular stenosis. Mitral Valve The mitral valve is normal in structure. Trace mitral regurgitation. Tricuspid Valve The tricuspid valve is normal in structure. Moderate tricuspid regurgitation. Estimated PAP is 45-50mmHg. Pulmonic Valve Pulmonic valve is not well visualized. There is no pulmonic valvular stenosis. Great Vessels The aortic root is normal in size. IVC is normal in size and collapses <50% with inspiration. [facility] [address] [place] [address] 2 D/M-MODE ECHOCARDIOGRAM Name: MK REESE Room #: 243-P [facility] IN M.R.#: [id number] Admission: 03/03/18 Attend Phys: Julian Walter, Discharge: Date of : 70 Date of Service: 03/05/18 0750 Report #: [id number] Pericardium There is no pericardial effusion. Left and right pleural effusions noted. <Conclusion> Left ventricular systolic function is normal. There is normal LV segmental wall motion. LVEF is 60-65%. The aortic valve is normal in structure. No aortic regurgitation or stenosis. The mitral valve is normal in structure. Trace mitral regurgitation. Moderate tricuspid regurgitation. Estimated pulmonary artery pressure of 45-50mmHg. Left and right pleural effusions noted. There is no pericardial effusion. <ELECTRONICALLY SIGNED> By: Abdoulaye Araujo MD, FACC 03/05/18749 9 9 Abdoulaye Araujo MD, FACC /INF
[2018-03-03] VITALS (15 sets, daily range): BP systolic 80–129; BP diastolic 27–83
[2018-03-03 00:35] LABS: HEMATOCRIT 30.1 % (37.0-47.0); HEMOGLOBIN 10.4 gm/dL (12.0-15.0); MCH 33.1 pg (26.0-34.0); MCHC 34.6 g/dL (28.0-37.0); MCV 95.5 fL (80.0-100.0); RBC 3.15 mil/uL (4.20-5.00); RDW 13.1 % (10.5-14.5); WBC 22.9 thou/uL (4.0-11.0)
[2018-03-03 00:42] LABS: BUN 107 mg/dL (7-18); CALCIUM 9.9 mg/dL (8.5-10.1); CHLORIDE 71 mmol/L (98-107); CREATININE 5.4 mg/dL (0.6-1.0); GLUCOSE 121 mg/dL (74-106); SODIUM 131 mmol/L (136-145)
[2018-03-03 00:54] LABS: URINE BILIRUBIN NEGATIVE (Negative); URINE BLOOD 3+ (Negative); URINE CLARITY CLOUDY; URINE COLOR YELLOW; URINE GLUCOSE-RANDOM* NEGATIVE (Negative); URINE KETONES NEGATIVE (Negative); URINE LEUKOCYTES-REFLEX NEGATIVE (Negative); URINE NITRITE-REFLEX NEGATIVE (Negative); URINE PROTEIN (DIPSTICK) 1+ (Negative); URINE SPECIFIC GRAVITY >= 1.030 (1.005-1.035); URINE UROBILINOGEN 0.2 E.U./dl (0.2-1.0)
[2018-03-03 01:00] LABS: CO2 > 45 mmol/L (21-32); POTASSIUM 1.9 mmol/L (3.5-5.1)
[2018-03-03 01:03] LABS: AMORPHOUS URATES Moderate /LPF (None Seen); BACTERIA-REFLEX >30 Many /HPF (None Seen); CASTS None Seen /LPF (None Seen); CRYSTALS None Seen /LPF (None Seen); MUCUS 0-3 Light strn/LPF (None Seen); SQUAMOUS >10 Many /LPF (0-3); TRANSITIONAL EPITHEL CELL 0-3 Few /LPF (None Seen); URINE RBC 0-2 Rare /HPF (0-2); URINE WBC-REFLEX None Seen /HPF (0-5)
[2018-03-03 09:22] LABS: ALBUMIN 2.3 g/dL (3.4-5.0); CALCIUM 8.6 mg/dL (8.5-10.1); CREATININE 4.6 mg/dL (0.6-1.0); DIRECT BILIRUBIN 0.1 mg/dL (<0.1-0.3); TOTAL BILIRUBIN 0.4 mg/dL (<0.1-1.0); TOTAL PROTEIN 6.4 g/dL (6.4-8.2)
[2018-03-03 09:28] LABS: POTASSIUM 3.5 mmol/L (3.5-5.1)
[2018-03-03 09:56] LABS: BE(vivo) 25.6 mmol/L (-2 to +3); HCO3 53.1 mmol/L (22.0-26.0); sO2 87.2 % (92.0-98.0)
[2018-03-03 09:57] LABS: PCO2 71.3 mmHg (35.0-45.0); PO2 51.3 mmHg (80.0-100.0)
[2018-03-03 15:14] LABS: BE(vivo) 24.2 mmol/L (-2 to +3); PO2 59.7 mmHg (80.0-100.0); pH 7.508 (7.360-7.450)
[2018-03-03 15:16] LABS: PCO2 65.7 mmHg (35.0-45.0)
[2018-03-03 18:37] LABS: HEMATOCRIT 29.2 % (37.0-47.0); MCH 33.3 pg (26.0-34.0); MCHC 34.4 g/dL (28.0-37.0); MCV 96.7 fL (80.0-100.0); RBC 3.02 mil/uL (4.20-5.00); RDW 13.6 % (10.5-14.5); WBC 21.6 thou/uL (4.0-11.0)
[2018-03-03 19:04] LABS: BUN 90 mg/dL (7-18); CALCIUM 8.4 mg/dL (8.5-10.1); CHLORIDE 90 mmol/L (98-107); GLUCOSE 102 mg/dL (74-106); MAGNESIUM 3.5 mg/dL (1.8-2.4); SGOT 62 U/L (15-37); SGPT 15 U/L (30-65); SODIUM 141 mmol/L (136-145); TOTAL BILIRUBIN 0.2 mg/dL (<0.1-1.0); TOTAL PROTEIN 5.9 g/dL (6.4-8.2)
[2018-03-03 19:16] LABS: CO2 > 45 mmol/L (21-32); CREATININE 2.8 mg/dL (0.6-1.0); POTASSIUM 2.3 mmol/L (3.5-5.1)
[2018-03-03 20:43] LABS: BE(vivo) 24.8 mmol/L (-2 to +3); HCO3 51.4 mmol/L (22.0-26.0); PCO2 64.5 mmHg (35.0-45.0); PO2 60.7 mmHg (80.0-100.0); pH 7.519 (7.360-7.450); sO2 92.6 % (92.0-98.0)
[2018-03-04] VITALS (25 sets, daily range): BP systolic 75–129; BP diastolic 39–94
[2018-03-04 05:22] LABS: HEMOGLOBIN 9.6 gm/dL (12.0-15.0); MCH 33.3 pg (26.0-34.0); MCHC 34.1 g/dL (28.0-37.0); MCV 97.8 fL (80.0-100.0); RBC 2.87 mil/uL (4.20-5.00); RDW 13.8 % (10.5-14.5); WBC 20.2 thou/uL (4.0-11.0)
[2018-03-04 05:30] LABS: ALBUMIN 1.8 g/dL (3.4-5.0); BUN 83 mg/dL (7-18); CALCIUM 8.2 mg/dL (8.5-10.1); CHLORIDE 97 mmol/L (98-107); CREATININE 1.9 mg/dL (0.6-1.0); GLUCOSE 101 mg/dL (74-106); PHOSPHORUS 3.2 mg/dL (2.5-4.9); SODIUM 143 mmol/L (136-145)
[2018-03-04 05:35] LABS: POTASSIUM 2.6 mmol/L (3.5-5.1)
[2018-03-04 05:36] LABS: CO2 > 45 mmol/L (21-32)
[2018-03-04 15:51] LABS: BE(vivo) 13.2 mmol/L (-2 to +3); HCO3 36.1 mmol/L (22.0-26.0); PCO2 38.9 mmHg (35.0-45.0); pH 7.585 (7.360-7.450); sO2 91.6 % (92.0-98.0)
[2018-03-04 17:40] LABS: BE(vivo) 12.3 mmol/L (-2 to +3); HCO3 37.1 mmol/L (22.0-26.0); PCO2 49.3 mmHg (35.0-45.0); PO2 160.6 mmHg (80.0-100.0); pH 7.494 (7.360-7.450); sO2 99.2 % (92.0-98.0)
[2018-03-05] VITALS (65 sets, daily range): BP systolic 80–134; BP diastolic 45–95
[2018-03-05 06:12] LABS: HEMATOCRIT 27.9 % (37.0-47.0); HEMOGLOBIN 9.5 gm/dL (12.0-15.0); MCH 33.7 pg (26.0-34.0); MCHC 34.1 g/dL (28.0-37.0); MCV 98.8 fL (80.0-100.0); RBC 2.83 mil/uL (4.20-5.00); WBC 14.8 thou/uL (4.0-11.0)
[2018-03-05 06:23] LABS: ALBUMIN 1.7 g/dL (3.4-5.0); CALCIUM 8.1 mg/dL (8.5-10.1); CREATININE 0.8 mg/dL (0.6-1.0); PHOSPHORUS 1.6 mg/dL (2.5-4.9); POTASSIUM 3.4 mmol/L (3.5-5.1)
[2018-03-05 07:30] LABS: BE(vivo) 15.7 mmol/L (-2 to +3); HCO3 41.1 mmol/L (22.0-26.0); PCO2 55.4 mmHg (35.0-45.0); PO2 135.6 mmHg (80.0-100.0); pH 7.488 (7.360-7.450); sO2 98.8 % (92.0-98.0)
[2018-03-06] VITALS (81 sets, daily range): BP systolic 73–130; BP diastolic 43–89
[2018-03-06 06:06] LABS: HEMATOCRIT 25.2 % (37.0-47.0); HEMOGLOBIN 8.6 gm/dL (12.0-15.0); MCH 33.7 pg (26.0-34.0); MCV 99.3 fL (80.0-100.0); RBC 2.54 mil/uL (4.20-5.00); RDW 14.4 % (10.5-14.5); WBC 14.2 thou/uL (4.0-11.0)
[2018-03-06 06:18] LABS: ALBUMIN 1.4 g/dL (3.4-5.0); CALCIUM 8.3 mg/dL (8.5-10.1); CREATININE 0.7 mg/dL (0.6-1.0); POTASSIUM 3.3 mmol/L (3.5-5.1)
[2018-03-07] VITALS (77 sets, daily range): BP systolic 75–152; BP diastolic 47–108
[2018-03-07 05:07] LABS: HEMATOCRIT 24.8 % (37.0-47.0); HEMOGLOBIN 8.5 gm/dL (12.0-15.0); MCH 33.5 pg (26.0-34.0); MCHC 34.2 g/dL (28.0-37.0); MCV 97.8 fL (80.0-100.0); RBC 2.53 mil/uL (4.20-5.00); WBC 14.7 thou/uL (4.0-11.0)
[2018-03-07 05:20] LABS: ALBUMIN 1.4 g/dL (3.4-5.0); CALCIUM 7.4 mg/dL (8.5-10.1); CREATININE 0.6 mg/dL (0.6-1.0); PHOSPHORUS 3.7 mg/dL (2.5-4.9)
[2018-03-07 05:21] LABS: POTASSIUM 4.5 mmol/L (3.5-5.1)
[2018-03-08] VITALS (36 sets, daily range): BP systolic 86–141; BP diastolic 55–94
[2018-03-08 05:27] LABS: HEMATOCRIT 24.2 % (37.0-47.0); HEMOGLOBIN 8.3 gm/dL (12.0-15.0); MCH 34.2 pg (26.0-34.0); MCHC 34.4 g/dL (28.0-37.0); MCV 99.6 fL (80.0-100.0); RBC 2.43 mil/uL (4.20-5.00); RDW 15.5 % (10.5-14.5); WBC 15.5 thou/uL (4.0-11.0)
[2018-03-08 05:37] LABS: ALBUMIN 1.3 g/dL (3.4-5.0); CALCIUM 8.1 mg/dL (8.5-10.1); CREATININE 0.6 mg/dL (0.6-1.0); MAGNESIUM 1.4 mg/dL (1.8-2.4); PHOSPHORUS 3.4 mg/dL (2.5-4.9); POTASSIUM 4.2 mmol/L (3.5-5.1)
[2018-03-08 05:38] LABS: BE(vivo) 6.8 mmol/L (-2 to +3); HCO3 31.4 mmol/L (22.0-26.0); PCO2 45.7 mmHg (35.0-45.0); PO2 86.1 mmHg (80.0-100.0); pH 7.455 (7.360-7.450); sO2 96.9 % (92.0-98.0)
[2018-03-09] VITALS (65 sets, daily range): BP systolic 83–132; BP diastolic 53–90
[2018-03-09 05:34] LABS: HEMATOCRIT 24.4 % (37.0-47.0); MCH 32.3 pg (26.0-34.0); MCHC 32.7 g/dL (28.0-37.0); MCV 98.9 fL (80.0-100.0); RBC 2.46 mil/uL (4.20-5.00); WBC 17.6 thou/uL (4.0-11.0)
[2018-03-09 05:47] LABS: ALBUMIN 1.2 g/dL (3.4-5.0); CALCIUM 8.5 mg/dL (8.5-10.1); CREATININE 0.5 mg/dL (0.6-1.0); MAGNESIUM 1.4 mg/dL (1.8-2.4); PHOSPHORUS 3.4 mg/dL (2.5-4.9); POTASSIUM 3.5 mmol/L (3.5-5.1)
[2018-03-10] VITALS (42 sets, daily range): BP systolic 109–134; BP diastolic 72–92
[2018-03-10 05:32] LABS: HEMATOCRIT 22.3 % (37.0-47.0); HEMOGLOBIN 7.5 gm/dL (12.0-15.0); MCH 32.8 pg (26.0-34.0); MCHC 33.4 g/dL (28.0-37.0); MCV 97.9 fL (80.0-100.0); RBC 2.28 mil/uL (4.20-5.00); RDW 14.8 % (10.5-14.5); WBC 13.2 thou/uL (4.0-11.0)
[2018-03-10 05:44] LABS: CALCIUM 8.6 mg/dL (8.5-10.1); CREATININE 0.4 mg/dL (0.6-1.0); MAGNESIUM 1.6 mg/dL (1.8-2.4); POTASSIUM 3.4 mmol/L (3.5-5.1)
[2018-03-11] VITALS (33 sets, daily range): BP systolic 85–173; BP diastolic 52–111
[2018-03-11 00:58] LABS: MAGNESIUM 1.6 mg/dL (1.8-2.4); POTASSIUM 3.5 mmol/L (3.5-5.1)
[2018-03-11 05:19] LABS: HEMATOCRIT 22.2 % (37.0-47.0); HEMOGLOBIN 7.7 gm/dL (12.0-15.0); MCH 33.6 pg (26.0-34.0); MCHC 34.7 g/dL (28.0-37.0); MCV 96.8 fL (80.0-100.0); RBC 2.3 mil/uL (4.20-5.00); RDW 14.5 % (10.5-14.5); WBC 12.6 thou/uL (4.0-11.0)
[2018-03-11 05:28] LABS: CALCIUM 8.5 mg/dL (8.5-10.1); CREATININE 0.5 mg/dL (0.6-1.0); POTASSIUM 3.7 mmol/L (3.5-5.1)
[2018-03-11 09:48] LABS: BE(vivo) 0.4 mmol/L (-2 to +3); HCO3 23.5 mmol/L (22.0-26.0); PCO2 31.7 mmHg (35.0-45.0); PO2 86.3 mmHg (80.0-100.0); pH 7.487 (7.360-7.450); sO2 97.3 % (92.0-98.0)
[2018-03-11 12:26] LABS: BE(vivo) 2.3 mmol/L (-2 to +3); HCO3 25.4 mmol/L (22.0-26.0); PCO2 33.3 mmHg (35.0-45.0); PO2 80.5 mmHg (80.0-100.0); pH 7.501 (7.360-7.450); sO2 96.8 % (92.0-98.0)
[2018-03-11 23:42] LABS: MAGNESIUM 1.5 mg/dL (1.8-2.4); POTASSIUM 3.4 mmol/L (3.5-5.1)
[2018-03-12] VITALS (44 sets, daily range): BP systolic 92–164; BP diastolic 52–109
[2018-03-12 03:28] LABS: MAGNESIUM 1.8 mg/dL (1.8-2.4); POTASSIUM 3.8 mmol/L (3.5-5.1)
[2018-03-12 11:28] LABS: pH 7.443 (7.360-7.450); sO2 94.3 % (92.0-98.0)
[2018-03-12 11:36] LABS: BE(vivo) -0.2 mmol/L (-2 to +3); HCO3 23.5 mmol/L (22.0-26.0); PCO2 35.2 mmHg (35.0-45.0); PO2 67.7 mmHg (80.0-100.0)
[2018-03-12 12:54] LABS: ABSOLUTE NEUTROPHILS 13.5 thou/uL (1.4-8.2); BASOPHILS 0.2 % (0.0-2.0); HEMATOCRIT 22.8 % (37.0-47.0); HEMOGLOBIN 7.7 gm/dL (12.0-15.0); MCH 32.1 pg (26.0-34.0); MCHC 33.6 g/dL (28.0-37.0); MCV 95.5 fL (80.0-100.0); MONOCYTES 3.7 % (1.0-8.0); PLATELET COUNT 337 thou/uL (150-400); POLYS 89.1 % (36.0-66.0); RBC 2.39 mil/uL (4.20-5.00); RDW 14.6 % (10.5-14.5); WBC 15.1 thou/uL (4.0-11.0)
[2018-03-12 13:02] LABS: CALCIUM 8.6 mg/dL (8.5-10.1); CREATININE 0.5 mg/dL (0.6-1.0); POTASSIUM 3.1 mmol/L (3.5-5.1)
[2018-03-13] VITALS (31 sets, daily range): BP systolic 101–156; BP diastolic 76–107
[2018-03-13 06:11] LABS: HEMATOCRIT 21.3 % (37.0-47.0); HEMOGLOBIN 7.2 gm/dL (12.0-15.0); MCH 32.7 pg (26.0-34.0); MCHC 33.7 g/dL (28.0-37.0); MCV 96.9 fL (80.0-100.0); RBC 2.19 mil/uL (4.20-5.00); RDW 14.7 % (10.5-14.5); WBC 16.9 thou/uL (4.0-11.0)
[2018-03-13 06:18] LABS: CALCIUM 8.5 mg/dL (8.5-10.1); CREATININE 0.5 mg/dL (0.6-1.0); MAGNESIUM 1.6 mg/dL (1.8-2.4)
[2018-03-13 06:23] LABS: POTASSIUM 2.4 mmol/L (3.5-5.1)
[2018-03-13 11:44] LABS: POTASSIUM 2.9 mmol/L (3.5-5.1)
[2018-03-14] VITALS (27 sets, daily range): BP systolic 104–174; BP diastolic 72–121
[2018-03-14 04:56] LABS: HEMATOCRIT 23.4 % (37.0-47.0); HEMOGLOBIN 7.9 gm/dL (12.0-15.0); MCH 32.3 pg (26.0-34.0); MCHC 33.8 g/dL (28.0-37.0); MCV 95.8 fL (80.0-100.0); RBC 2.44 mil/uL (4.20-5.00); RDW 15.1 % (10.5-14.5); WBC 16.1 thou/uL (4.0-11.0)
[2018-03-14 05:07] LABS: CALCIUM 8.6 mg/dL (8.5-10.1); CREATININE 0.5 mg/dL (0.6-1.0); MAGNESIUM 1.3 mg/dL (1.8-2.4); POTASSIUM 3.4 mmol/L (3.5-5.1)
[2018-03-14 12:00] LABS: MAGNESIUM 1.9 mg/dL (1.8-2.4); POTASSIUM 3.7 mmol/L (3.5-5.1)
[2018-03-15] VITALS (21 sets, daily range): BP systolic 101–170; BP diastolic 58–109
[2018-03-15 05:30] LABS: HEMATOCRIT 25.3 % (37.0-47.0); HEMOGLOBIN 8.6 gm/dL (12.0-15.0); MCH 32.6 pg (26.0-34.0); MCHC 34.2 g/dL (28.0-37.0); MCV 95.3 fL (80.0-100.0); RBC 2.65 mil/uL (4.20-5.00); RDW 14.8 % (10.5-14.5)
[2018-03-15 05:38] LABS: CALCIUM 8.9 mg/dL (8.5-10.1); CREATININE 0.5 mg/dL (0.6-1.0); MAGNESIUM 1.3 mg/dL (1.8-2.4); POTASSIUM 3.2 mmol/L (3.5-5.1)
[2018-03-15 12:17] LABS: POTASSIUM 3.6 mmol/L (3.5-5.1)
[2018-03-16 04:15] VITALS: BP 125/77
[2018-03-16 05:11] LABS: CALCIUM 8.9 mg/dL (8.5-10.1); CREATININE 0.5 mg/dL (0.6-1.0); MAGNESIUM 1.6 mg/dL (1.8-2.4)
[2018-03-16 05:28] LABS: HEMATOCRIT 25.1 % (37.0-47.0); HEMOGLOBIN 8.3 gm/dL (12.0-15.0); MCH 31.7 pg (26.0-34.0); MCHC 33.2 g/dL (28.0-37.0); MCV 95.4 fL (80.0-100.0); RBC 2.63 mil/uL (4.20-5.00); RDW 14.9 % (10.5-14.5); WBC 18.6 thou/uL (4.0-11.0)
[2018-03-16 08:34] VITALS: BP 137/71
[2018-03-16 14:18] LABS: URINE BILIRUBIN NEGATIVE (Negative); URINE BLOOD NEGATIVE (Negative); URINE CLARITY CLEAR; URINE COLOR YELLOW; URINE GLUCOSE-RANDOM* NEGATIVE (Negative); URINE KETONES NEGATIVE (Negative); URINE LEUKOCYTES-REFLEX NEGATIVE (Negative); URINE NITRITE-REFLEX NEGATIVE (Negative); URINE PROTEIN (DIPSTICK) NEGATIVE (Negative); URINE UROBILINOGEN 0.2 E.U./dl (0.2-1.0)
[2018-03-16 15:27] VITALS: BP 93/59
[2018-03-16 20:09] VITALS: BP 124/85
[2018-03-16 22:56] LABS: MAGNESIUM 1.7 mg/dL (1.8-2.4); POTASSIUM 3.9 mmol/L (3.5-5.1)
[2018-03-17 04:23] VITALS: BP 142/80
[2018-03-17 10:42] LABS: HEMATOCRIT 23.3 % (37.0-47.0); HEMOGLOBIN 7.8 gm/dL (12.0-15.0); MCH 32.4 pg (26.0-34.0); MCHC 33.4 g/dL (28.0-37.0); MCV 97.2 fL (80.0-100.0); RBC 2.4 mil/uL (4.20-5.00); RDW 15.3 % (10.5-14.5); WBC 16.7 thou/uL (4.0-11.0)
[2018-03-17 10:47] VITALS: BP 139/37
[2018-03-17 11:00] LABS: CALCIUM 9.4 mg/dL (8.5-10.1); CREATININE 0.5 mg/dL (0.6-1.0); MAGNESIUM 1.6 mg/dL (1.8-2.4); POTASSIUM 3.9 mmol/L (3.5-5.1)
[2018-03-17 15:30] VITALS: BP 133/61
[2018-03-17 19:55] VITALS: BP 137/83
[2018-03-18 04:44] VITALS: BP 120/89
[2018-03-18 05:30] LABS: ABSOLUTE NEUTROPHILS 8.1 thou/uL (1.4-8.2); BASOPHILS 0.8 % (0.0-2.0); EOSINOPHILS 2.3 % (0.0-3.0); HEMATOCRIT 23.8 % (37.0-47.0); HEMOGLOBIN 7.9 gm/dL (12.0-15.0); MCH 32.4 pg (26.0-34.0); MCV 98.2 fL (80.0-100.0); MONOCYTES 6.7 % (1.0-8.0); PLATELET COUNT 436 thou/uL (150-400); POLYS 65.2 % (36.0-66.0); RBC 2.42 mil/uL (4.20-5.00); RDW 16.2 % (10.5-14.5); WBC 12.5 thou/uL (4.0-11.0)
[2018-03-18 05:41] LABS: CALCIUM 9.3 mg/dL (8.5-10.1); CREATININE 0.5 mg/dL (0.6-1.0); MAGNESIUM 1.5 mg/dL (1.8-2.4); POTASSIUM 3.4 mmol/L (3.5-5.1)
[2018-03-18 07:30] VITALS: BP 140/98
[2018-03-18 11:20] VITALS: BP 127/76
[2018-03-18] MEDS ORDERED: CEFDINIR300 MG PO (13:33)
[2018-03-18] MEDS ORDERED: METRONIDAZOLE500 M4 PER TUBE (13:33)
[2018-03-18] MEDS ORDERED: LOPRESSOR100 M1 PER TUBE (13:35)
[2018-03-18 15:25] VITALS: BP 140/51
== END 2018-03-18 16:10 | disposition home or self-care (01) | DRG 870 ==
LOC: ER 23:28 → 3W 03-03 02:04 → EROBS 03-03 02:04 → 3W 03-03 03:05 → ICU 03-03 13:18 → 3W 03-03 13:18 → ICU 03-03 13:19 → 2N 03-15 16:21
PROVIDERS: Emergency Medicine; Hospitalist; Internal Medicine; Internal Medicine Nephrology; Internal Medicine Pulmonary Disease; Nurse Practitioner Acute Care; Nurse Practitioner Adult Health; Pediatrics; Specialist
PROC: 0D20XUZ Change Feeding Device in Upper Intestinal Tract, External Approach (ICD-10-PCS; principal; 2018-03-04)
PROC: 5A09357 Assistance with Respiratory Ventilation, Less than 24 Consecutive Hours, Continuous Positive Airway Pressure (ICD-10-PCS; principal; 2018-03-04)
PROC: 0BJ08ZZ Inspection of Tracheobronchial Tree, Via Natural or Artificial Opening Endoscopic (ICD-10-PCS; principal; 2018-03-04)
PROC: 5A1955Z Respiratory Ventilation, Greater than 96 Consecutive Hours (ICD-10-PCS; 2018-03-11)
PROC: 0BH17EZ Insertion of Endotracheal Airway into Trachea, Via Natural or Artificial Opening (ICD-10-PCS; 2018-03-11)
DX: A41.9 Sepsis, unspecified organism (principal); J69.0 Pneumonitis due to inhalation of food and vomit; J96.01 Acute respiratory failure with hypoxia; E43 Unspecified severe protein-calorie malnutrition; J96.02 Acute respiratory failure with hypercapnia; E87.1 Hypo-osmolality and hyponatremia; N39.0 Urinary tract infection, site not specified; E87.3 Alkalosis; I47.1 Supraventricular tachycardia; K56.7 Ileus, unspecified; N17.9 Acute kidney failure, unspecified; Z68.1 Body mass index [BMI] 19.9 or less, adult; R65.20 Severe sepsis without septic shock; M81.0 Age-related osteoporosis without current pathological fracture; K21.9 Gastro-esophageal reflux disease without esophagitis; H54.8 Legal blindness, as defined in USA; I10 Essential (primary) hypertension; K59.00 Constipation, unspecified; E87.6 Hypokalemia; E86.0 Dehydration; G80.9 Cerebral palsy, unspecified; F79 Unspecified intellectual disabilities; G40.909 Epilepsy, unspecified, not intractable, without status epilepticus; R13.10 Dysphagia, unspecified; I95.9 Hypotension, unspecified; E86.9 Volume depletion, unspecified; D64.9 Anemia, unspecified; B99.9 Unspecified infectious disease; E83.42 Hypomagnesemia; E83.39 Other disorders of phosphorus metabolism; K76.0 Fatty (change of) liver, not elsewhere classified; L89.310 Pressure ulcer of right buttock, unstageable; Z79.899 Other long term (current) drug therapy; Z23 Encounter for immunization
CPT/HCPCS: 10078; 10081; 10203

== ENCOUNTER 2018-03-23 16:48 | Inpatient (IN) | payer OTHER ==
[2018-03-23] VITALS (16 sets, daily range): BP systolic 74–127; BP diastolic 44–77
[~2018-03-23] VITALS: Ht 167.6 cm; Wt 46.7 kg
--- NOTE | ~2018-03-23 | EKG ---
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 : 1970 Requested By: Kristin Owusu Order Number: [id number] MD: Abdoulaye Araujo Measurements Intervals [place] Rate: 134 P: 61 HI: 106 QRS: 61 QRSD: 74 T: QT: 321 QTc: 480 Interpretive Statements Sinus tachycardia Nonspecific ST and T wave abnormality Compared to ECG 03/12/2018 07:55:[address] and T wave abnormality is now present Electronically Signed On 03-24-2018 8:49:11 [employer] by Abdoulaye Araujo [email or web address] <ELECTRONICALLY SIGNED> By: Abdoulaye Araujo MD, [facility] 03/24/18 0849 03 03 Abdoulaye Araujo MD, [facility] /EPI
--- NOTE | ~2018-03-23 | HC ---
[facility] [place] [address] CONSULTATION Name: MK REESE Room #: 461-P ADM IN M.R.#: [id number] Admission: 03/23/18 Attend Phys: Jr Lewis MD Discharge: Date of : 70 Report #: [id number] THIS REPORT FOR: //name// CC: FAM unknown Jr Lewis DATE OF SERVICE: 03/24/2018 CHIEF COMPLAINT: Pressure ulceration of the left iliac crest. HISTORY OF PRESENT ILLNESS: This is a 47-year-old female patient with advanced cerebral palsy. She has a history of seizures developed at approximately 5 months of age. She developed spasticity and contractures following that event. She presumably had had some form of anoxic event. No additional details are available. I have seen her recently in the hospital. She normally has resided at [facility]. She had a recent stay with respiratory failure. She is admitted again now. She remains nonverbal. PAST MEDICAL HISTORY: Positive for history of respiratory failure, cerebral palsy, history of previous J-tube placement, history of aspiration pneumonia, gastroesophageal reflux, scoliosis, constipation, incontinence. SOCIAL HISTORY: Negative for alcohol or tobacco use. FAMILY HISTORY: Unknown. REVIEW OF SYSTEMS: Unobtainable due to the patient's condition. PHYSICAL EXAMINATION: VITAL SIGNS: At this time include pulse rate 118, respiratory rate of 22, blood pressure 129/82, temperature 98.7. GENERAL: This is a chronically ill-appearing female patient who appears to be in no distress. HEENT: Head normocephalic. Nose and throat are clear. NECK: Supple. LUNGS: Diminished. HEART: Regular. ABDOMEN: Soft, nontender. EXTREMITIES: She has flexion contractures at the hips, knees, and elbows. ASSESSMENT: There is: 1. Unstageable pressure ulceration to the right posterior iliac crest. 2. Spasticity and flexion contractures in all 4 extremities due to underlying anoxic brain injury/cerebral palsy. 3. Recent respiratory failure with healthcare-associated pneumonia. [facility] [address] [place] [address] CONSULTATION Name: MK REESE Room #: 461- ADM IN M.R.#: [id number] Admission: 03/23/18 Attend Phys: Jr Lewis MD Discharge: Date of : 70 Report #: [id number] RECOMMENDATIONS: At this point in time, we will recommend continued use of topical bordered foam. There is dry, stable eschar in place. It is gradually penelope, was showing signs of new epithelialization. We will continue with low air loss mattress, q. 2 hour turning and repositioning, continued nutritional support with a J-tube. I appreciate being asked to see her in consultation. <ELECTRONICALLY SIGNED> By: Tacos Tomlin MD 03/26/18 1614 2128 2227 Tacos Tomlin MD /nt
[~2018-03-23 16:48] MED LIST changes: +LOPRESSOR100 M1 PER TUBE; +METRONIDAZOLE500 M4 PER TUBE
[2018-03-23 17:06] LABS: URINE BILIRUBIN NEGATIVE (Negative); URINE BLOOD NEGATIVE (Negative); URINE CLARITY CLEAR; URINE COLOR YELLOW; URINE GLUCOSE-RANDOM* NEGATIVE (Negative); URINE KETONES TRACE (Negative); URINE LEUKOCYTES-REFLEX NEGATIVE (Negative); URINE NITRITE-REFLEX NEGATIVE (Negative); URINE PROTEIN (DIPSTICK) NEGATIVE (Negative); URINE UROBILINOGEN 0.2 E.U./dl (0.2-1.0)
[2018-03-23 17:26] LABS: HEMATOCRIT 31.5 % (37.0-47.0); HEMOGLOBIN 10.5 gm/dL (12.0-15.0); MCH 31.9 pg (26.0-34.0); MCHC 33.3 g/dL (28.0-37.0); MCV 95.8 fL (80.0-100.0); PLATELET COUNT 554 thou/uL (150-400); RBC 3.29 mil/uL (4.20-5.00); RDW 15.9 % (10.5-14.5); WBC 14.9 thou/uL (4.0-11.0)
[2018-03-23 17:36] LABS: ANION GAP 16 mmol/L (7-16); BUN 13 mg/dL (7-18); CALCIUM 9.6 mg/dL (8.5-10.1); CHLORIDE 98 mmol/L (98-107); CO2 28 mmol/L (21-32); CREATININE 0.7 mg/dL (0.6-1.0); GLUCOSE 108 mg/dL (74-106); SODIUM 142 mmol/L (136-145)
[2018-03-23 17:38] LABS: POTASSIUM 2.8 mmol/L (3.5-5.1)
[2018-03-23 17:45] LABS: ALBUMIN 2.7 g/dL (3.4-5.0); SGOT 18 U/L (15-37); SGPT 19 U/L (30-65); TOTAL BILIRUBIN 0.2 mg/dL (<0.1-1.0); TOTAL PROTEIN 7.9 g/dL (6.4-8.2); TROPONIN-I <0.06 ng/mL (<0.06)
[2018-03-23 17:50] LABS: ABSOLUTE NEUTROPHILS 12.1 thou/uL (1.4-8.2); ANISOCYTOSIS 2+; POLYCHROMASIA OCCASIONAL
[2018-03-23 19:13] LABS: APTT 35.9 Seconds (24.5-32.8); FIBRINOGEN 546.3 mg/dL (210-360); PROTIME 9.7 Seconds (9.3-11.4)
[2018-03-23 22:55] LABS: CALCIUM 7.7 mg/dL (8.5-10.1); CREATININE 0.5 mg/dL (0.6-1.0)
[2018-03-23 22:58] LABS: POTASSIUM 2.7 mmol/L (3.5-5.1)
[2018-03-24] VITALS (32 sets, daily range): BP systolic 91–129; BP diastolic 65–92
[2018-03-24 05:50] LABS: HEMATOCRIT 25.4 % (37.0-47.0); MCV 96.9 fL (80.0-100.0); RBC 2.62 mil/uL (4.20-5.00); RDW 15.9 % (10.5-14.5)
[2018-03-24 05:51] LABS: HEMOGLOBIN 8.4 gm/dL (12.0-15.0); PLATELET COUNT 391 thou/uL (150-400)
[2018-03-24 06:03] LABS: CALCIUM 8.3 mg/dL (8.5-10.1); CREATININE 0.4 mg/dL (0.6-1.0); MAGNESIUM 1.3 mg/dL (1.8-2.4); POTASSIUM 3.6 mmol/L (3.5-5.1)
[2018-03-24 06:18] LABS: ABSOLUTE NEUTROPHILS 7.6 thou/uL (1.4-8.2); MYELOCYTES 1 %
[2018-03-25] VITALS (10 sets, daily range): BP systolic 102–130; BP diastolic 62–87
[2018-03-25 05:17] LABS: HEMATOCRIT 23.7 % (37.0-47.0); HEMOGLOBIN 8.1 gm/dL (12.0-15.0); MCH 32.6 pg (26.0-34.0); MCV 95.8 fL (80.0-100.0); PLATELET COUNT 403 thou/uL (150-400); RBC 2.48 mil/uL (4.20-5.00); RDW 15.6 % (10.5-14.5); WBC 9.8 thou/uL (4.0-11.0)
[2018-03-25 05:24] LABS: CREATININE 0.3 mg/dL (0.6-1.0)
[2018-03-25 05:59] LABS: ABSOLUTE NEUTROPHILS 6.5 thou/uL (1.4-8.2)
[2018-03-25 06:00] LABS: PLATELET ESTIMATE INCREASED
[2018-03-25 06:01] LABS: POLYCHROMASIA SLIGHT
[2018-03-25 06:19] LABS: POTASSIUM 2.2 mmol/L (3.5-5.1)
[2018-03-26 00:18] VITALS: BP 153/76
[2018-03-26 05:13] VITALS: BP 130/46
[2018-03-26 07:32] VITALS: BP 116/76
[2018-03-26 14:47] VITALS: BP 121/85
[2018-03-26 20:35] VITALS: BP 124/89
[2018-03-27 04:31] VITALS: BP 130/85
[2018-03-27 08:03] VITALS: BP 133/87
[2018-03-27] MEDS ORDERED: AUGMENTIN400 MG/53 PER TUBE (13:49)
[2018-03-27 16:37] VITALS: BP 136/80
== END 2018-03-27 16:50 | disposition hospice, home (50) | DRG 871 ==
LOC: ER 16:48 → ICU 18:40 → EROBS 18:40 → ICU 20:40 → 4W 03-25 06:29
PROVIDERS: Family Medicine; Nurse Practitioner Family
DX: A41.9 Sepsis, unspecified organism (principal); E43 Unspecified severe protein-calorie malnutrition; G93.1 Anoxic brain damage, not elsewhere classified; N17.9 Acute kidney failure, unspecified; E44.0 Moderate protein-calorie malnutrition; Z68.1 Body mass index [BMI] 19.9 or less, adult; M81.0 Age-related osteoporosis without current pathological fracture; K21.9 Gastro-esophageal reflux disease without esophagitis; H54.8 Legal blindness, as defined in USA; I10 Essential (primary) hypertension; K59.00 Constipation, unspecified; R65.20 Severe sepsis without septic shock; G80.9 Cerebral palsy, unspecified; E87.6 Hypokalemia; I95.9 Hypotension, unspecified; G40.909 Epilepsy, unspecified, not intractable, without status epilepticus; R13.10 Dysphagia, unspecified; M24.50 Contracture, unspecified joint; L89.890 Pressure ulcer of other site, unstageable; Z79.899 Other long term (current) drug therapy
CPT/HCPCS: 10045; 10078; 10204